=== PATIENT | male | born 1965 | race Hispanic/Latino ===

== ENCOUNTER 2017-08-09 08:46 | Emergency (ER) | payer MEDICAID, OTHER ==
[2017-08-09 08:47] VITALS: BMI 21.4
[2017-08-09 09:07] VITALS: O2SAT 98
--- NOTE | 2017-08-09 09:46 | ED PDOC ---
HPI: General Adult Time Seen by Provider: 08/09/17 09:03 Chief Complaint (Nursing): Med Refill Chief Complaint (Provider): Med Refill and Weight loss History Per: Patient History/Exam Limitations: no limitations Onset/Duration Of Symptoms: Other (approximately 2-3 months, patient is not specific) Current Symptoms Are (Timing): Still Present Additional Complaint(s): 52 yo male with a history of HIV, presents to the ED complaining of weight loss , loss of appetite, and requests a refill prescription for Atripla, onset of approximately 30-60 days ago. Patient states that he has lost 30lb-40lbs from his normal weight around 150lbs, but says the last time he scaled himself was at his primary care physician's office and has never scaled himself. He reports that his taste for certain foods have changed, causing him to have a decreased appetite. Of note, patient cannot remember his CD4 count. He denies any vomiting , fevers, headaches, sweats, chest pain, or any other complaints. In addition, he says that he ran out of Atripla and can never reach his primary care physician, so he is requesting another one. Past Medical History Reviewed: Historical Data, Nursing Documentation, Vital Signs Vital Signs: Last Vital Signs Temp 98.3 F 08/09/17 09:02 Pulse 74 08/09/17 09:02 Resp 20 08/09/17 09:02 BP 109/72 08/09/17 09:02 Pulse Ox 98 08/09/17 09:55 - Medical History PMH: HIV, Pneumonia - Surgical History Surgical History: No Surg Hx - Family History Family History: States: Unknown Family Hx - Social History Current smoker - smoking cessation education provided: No Ex-Smoker (has not smoked in the last 12 months): No Alcohol: None Drugs: Denies - Home Medications Home Medications: Ambulatory Orders Medication Instructions Recorded methylPREDNISolone [Medrol] 4 mg PO DAILY #0 tab 03/16/16 Hydrocortisone 2.5% (Rectal) 30 applic [place] BID #1 tube 06/07/16 [Anusol-HC] Sulfamethoxazole/Trimethoprim 1 each PO BID #20 tablet 06/07/16 [Bactrim 400-80 mg Tablet] Clindamycin [Cleocin] 300 mg PO QID #39 cap 11/02/17 traMADol [Ultram] 50 mg PO Q8 PRN #12 tab 04/09/17 Azithromycin 1,200 mg PO QWK #4 dose 08/09/17 Efavirenz/Emtricitabine/Teno 1 tab PO DAILY #30 tab 08/09/17 [Atripla 600 MG-200 MG-300 MG] Sulfamethoxazole/Trimethoprim 2 tab PO TID 21 Days tab 08/09/17 [Bactrim DS 800 mg-160 mg] - Allergies Allergies/Adverse Reactions: Allergies Allergy/AdvReac Type Severity Reaction Status Date / Time No Known Allergies Allergy Verified 04/09/17 02:06 Review of Systems ROS Statement: Except As Marked, All Systems Reviewed And Found Negative Constitutional: Positive for: Weight loss. Negative for: Fever, Sweats Cardiovascular: Negative for: Chest Pain Gastrointestinal: Negative for: Nausea, Vomiting, Abdominal Pain Neurological: Negative for: Headache Physical Exam - Reviewed Nursing Documentation Reviewed: Yes Vital Signs Reviewed: Yes - Physical Exam Appears: Positive for: Well, Non-toxic, No Acute Distress Head Exam: Positive for: ATRAUMATIC, NORMAL INSPECTION, NORMOCEPHALIC Skin: Positive for: Normal Color, Warm, DRY Eye Exam: Positive for: EOMI, Normal appearance, PERRL ENT: Positive for: Normal ENT Inspection Neck: Positive for: Normal, Painless ROM Cardiovascular/Chest: Positive for: Regular Rate, Rhythm. Negative for: Murmur Respiratory: Positive for: Normal Breath Sounds. Negative for: Respiratory Distress Gastrointestinal/Abdominal: Positive for: Normal Exam, Soft. Negative for: Tenderness Back: Positive for: Normal Inspection Extremity: Positive for: Normal ROM. Negative for: Pedal Edema, Deformity Neurologic/Psych: Positive for: Alert, Oriented. Negative for: Motor/Sensory Deficits - Laboratory Results Result Diagrams: 08/09/17 09:40 08/09/17 09:40 - ECG O2 Sat by Pulse Oximetry: 98 (RA) Pulse Ox Interpretation: Normal Medical Decision Making Medical Decision Making: Time: --09:27 Impression: --prescription refill request and possible weight loss with decrease appetite Differential: --aids wasting syndrome, infection general with unknown source at this time Plan: --Labs --ED Urine Dip Reassess CXR possible early developing PCP? Case discussed with Dr Gonsales FP resident for follow up appointment with the clinic. Patient will be started on Bactrim and azitro. Scribe Attestation: Documented by Topher Tijerina acting as a scribe for Harmeet Mcnamara MD. Disposition - Clinical Impression Clinical Impression: AIDS, HIV disease, PCP (pneumocystis carinii pneumonia) - Patient ED Disposition Is Patient to be Admitted: No Doctor Will See Patient In The: Office Counseled Patient/Family Regarding: Studies Performed, Diagnosis, Need For Followup - Disposition Referrals: [facility] [Outside] Disposition: Routine/Home Disposition Time: 12:38 Condition: GOOD Additional Instructions: Take your medications as instructed. Follow up with your PCP in 2-3 days. You will be called for appointment in 2 days. Prescriptions: Azithromycin 1,200 mg PO QWK #4 dose Efavirenz/Emtricitabine/Teno [Atripla 600 MG-200 MG-300 MG] 1 tab PO DAILY #30 tab Sulfamethoxazole/Trimethoprim [Bactrim DS 800 mg-160 mg] 2 tab PO TID 21 Days tab Instructions: Pneumocystis Pneumonia (PCP), HIV/AIDS Forms: [facility] ([place])
[2017-08-09 09:58] LABS: BASO % 0.5 % (0.0-2.0); EOS % 0.1 % (0.0-4.0); HEMOGLOBIN 7.6 g/dL (12.0-18.0); LYMPH # 0.1 K/uL (1.0-4.3); MEAN CELL VOLUME 86.7 fl (80.0-94.0); MEAN CORPUSCULAR HEMOGLOBIN 29.1 pg (27.0-31.0); MEAN CORPUSCULAR HGB CONC 33.5 g/dL (33.0-37.0); MEAN PLATELET VOLUME 8.3 fl (7.2-11.7); MONO # 0.1 K/uL (0.0-0.8); MONO % 5.1 % (0.0-10.0); NEUT # 1.1 K/uL (1.8-7.0); NEUT % 89.3 % (50.0-75.0); NRBC % 0.2 % (0.0-0.0); PLATELET COUNT 176 K/uL (130-400); RBC 2.63 Mil/uL (4.40-5.90); RED CELL DISTRIBUTION WIDTH 15.9 % (11.5-14.5)
[2017-08-09 10:02] LABS: ALB/GLOB RATIO 0.8 (1.0-2.1); ALBUMIN 2.9 g/dL (3.5-5.0); ALT/SGPT 35 U/L (21-72); AST/SGOT 43 U/L (17-59); BLOOD UREA NITROGEN 19 mg/dl (9-20); CALCIUM 8.2 mg/dL (8.4-10.2); GFR AFRICAN-AMERICAN > 60; GFR NON-AFRICAN AMERICAN > 60
[2017-08-09 10:07] LABS: WHITE BLOOD COUNT 1.2 K/uL (4.8-10.8)
[2017-08-09 10:44] LABS: ANISOCYTOSIS SLIGHT; LYMPHOCYTE 3 % (20-50); MONOCYTE 4 % (0-10); NEUTROPHIL 93 % (42-75); PLATELET ESTIMATE NORMAL (NORMAL); TOTAL CELLS COUNTED 100
[2017-08-09 10:46] LABS: HYPOCHROMIC SLIGHT; LARGE PLATELETS PRESENT; OVALOCYTES SLIGHT; SCHISTOCYTES SLIGHT; TEARDROP CELLS SLIGHT
[2017-08-09] MEDS ORDERED: Sodium Chloride 0.9% 1,000 ML IV STA (10:51)
--- NOTE | 2017-08-09 12:01 | RAD ---
HISTORY: Weakness. COMPARISON: Two TECHNIQUE: Chest PA and lateral FINDINGS: LUNGS: The interstitial markings are increased and coarsened particularly in the mid to lower lung zones. Rule out sequela of reactive/ inflammatory airway disease or interstitial pneumonia or viral illness. PLEURA: No significant pleural effusion identified. No pneumothorax apparent. CARDIOVASCULAR: Normal. OSSEOUS STRUCTURES: Minor multilevel degenerative spondylosis of the thoracic spine. Chronic anterior wedge deformities of a few mid -lower thoracic segments VISUALIZED UPPER ABDOMEN: Normal. OTHER FINDINGS: None. IMPRESSION: Increased and coarsened interstitial markings particularly in the mid to lower lung zones. Rule out sequela of reactive/ inflammatory airway disease or interstitial pneumonia or viral illness
[2017-08-09 12:53] VITALS: BP 106/58; PULSE 91; RESP 16; TEMP 98.8
== END 2017-08-09 12:48 | disposition home or self-care (01) ==
LOC: H.ER 08:46
DX: Z76.0 Encounter for issue of repeat prescription (principal); B59 Pneumocystosis; B20 Human immunodeficiency virus [HIV] disease; R63.4 Abnormal weight loss
CPT/HCPCS: 71046; 80053; 85025; 86360; 96360; 99283; J7040

== ENCOUNTER 2017-08-17 14:59 | Inpatient (IN) | payer OTHER ==
[2017-08-17 14:59] VITALS: BMI 21.4
--- NOTE | 2017-08-17 15:47 | ED PDOC ---
HPI: General Adult Time Seen by Provider: 08/17/17 15:24 Chief Complaint (Nursing): Weakness/Neurological Deficit Chief Complaint (Provider): generalized weakness History Per: Patient History/Exam Limitations: no limitations Current Symptoms Are (Timing): Still Present Severity: Moderate Additional Complaint(s): 52yo male hx HIV noncompliant w meds for >1 month represents to ED with generalized weakness, SOB, weight loss, cough. Seen in ED last week, found to be anemic and leukopenic, but unable to fill Rx and did not receive followup care. Past Medical History Reviewed: Historical Data, Nursing Documentation, Vital Signs Vital Signs: Last Vital Signs Temp 97.5 F L 08/17/17 15:01 Pulse 88 08/17/17 18:04 Resp 20 08/17/17 18:04 BP 129/61 08/17/17 18:04 Pulse Ox 98 08/17/17 18:04 - Medical History PMH: HIV, Pneumonia - Family History Family History: States: Unknown Family Hx - Living Arrangements Living Arrangements: Other - Home Medications Home Medications: Ambulatory Orders Medication Instructions Recorded methylPREDNISolone [Medrol] 4 mg PO DAILY #0 tab 03/16/16 Hydrocortisone 2.5% (Rectal) 30 applic [place] BID #1 tube 06/07/16 [Anusol-HC] Sulfamethoxazole/Trimethoprim 1 each PO BID #20 tablet 06/07/16 [Bactrim 400-80 mg Tablet] Clindamycin [Cleocin] 300 mg PO QID #39 cap 04/09/17 traMADol [Ultram] 50 mg PO Q8 PRN #12 tab 04/09/17 Azithromycin 1,200 mg PO QWK #4 dose 08/09/17 Efavirenz/Emtricitabine/Teno 1 tab PO DAILY #30 tab 08/09/17 [Atripla 600 MG-200 MG-300 MG] Sulfamethoxazole/Trimethoprim 2 tab PO TID 21 Days tab 08/09/17 [Bactrim DS 800 mg-160 mg] - Allergies Allergies/Adverse Reactions: Allergies Allergy/AdvReac Type Severity Reaction Status Date / Time No Known Allergies Allergy Verified 04/09/17 02:06 Review of Systems Constitutional: Positive for: Weakness, Malaise, Weight loss. Negative for: Fever Cardiovascular: Positive for: Palpitations Respiratory: Positive for: Cough, Shortness of Breath Gastrointestinal: Positive for: Diarrhea. Negative for: Abdominal Pain Musculoskeletal: Negative for: Neck Pain, Back Pain Skin: Negative for: Rash, Lesions, Bruising Neurological: Positive for: Dizziness. Negative for: Weakness, Altered Mental Status Physical Exam - Reviewed Nursing Documentation Reviewed: Yes Vital Signs Reviewed: Yes - Physical Exam Appears: Positive for: Non-toxic (temporal wasting) Head Exam: Positive for: ATRAUMATIC, NORMAL INSPECTION, NORMOCEPHALIC Skin: Positive for: Normal Color, Warm, DRY Eye Exam: Positive for: EOMI, Normal appearance, PERRL ENT: Positive for: Other (thrush) Neck: Positive for: Normal, Painless ROM Cardiovascular/Chest: Positive for: Chest Non Tender, Tachycardia Respiratory: Negative for: Wheezing, Respiratory Distress Gastrointestinal/Abdominal: Positive for: Bowel Sounds, Soft. Negative for: Tenderness Back: Positive for: Normal Inspection Extremity: Positive for: Normal ROM, Other (frail). Negative for: Tenderness Neurologic/Psych: Positive for: Alert, Oriented. Negative for: Motor/Sensory Deficits - Laboratory Results Result Diagrams: 08/17/17 16:00 08/17/17 16:00 - ECG O2 Sat by Pulse Oximetry: 98 Medical Decision Making Medical Decision Making: workup for HIV wasting/AIDs, r/o PCP or other opportunistic infection BP improved w IVF ANC approx 1200 chem reveals elev BUN, diminished CO2 will admit, place isol given immunocompromised IVF continuing Admit to FP service as now a patient of [facility] Disposition - Clinical Impression Clinical Impression: AIDS, Anemia - Patient ED Disposition Is Patient to be Admitted: Yes - Disposition Disposition Time: 17:15 Condition: FAIR Forms: [facility] ([place]) - Pt Status Changed To: Hospital Disposition Of: Observation
--- NOTE | 2017-08-17 16:10 | RAD ---
HISTORY: SOB COMPARISON: Comparison made with chest radiograph 08/09/2017 FINDINGS: LUNGS: No acute consolidation. The interstitial markings slightly less coarsened compared the prior exam. The peribronchial cuffing changes appear less pronounced as well. PLEURA: No significant pleural effusion identified, no pneumothorax apparent. CARDIOVASCULAR: Normal. OSSEOUS STRUCTURES: Minor multilevel degenerative spondylosis of the thoracic spine VISUALIZED UPPER ABDOMEN: Normal. OTHER FINDINGS: None. IMPRESSION: No acute consolidation. Interstitial markings slightly less coarsened compared the prior study. Peribronchial cuffing changes appear less pronounced as well
[2017-08-17 16:16] LABS: BASO % 1.1 % (0.0-2.0); EOS % 0.7 % (0.0-4.0); HEMOGLOBIN 9.4 g/dL (12.0-18.0); LYMPH # 0.1 K/uL (1.0-4.3); LYMPH % 7.1 % (20.0-40.0); MEAN CELL VOLUME 87.7 fl (80.0-94.0); MEAN CORPUSCULAR HEMOGLOBIN 28.5 pg (27.0-31.0); MEAN CORPUSCULAR HGB CONC 32.4 g/dL (33.0-37.0); MEAN PLATELET VOLUME 9.8 fl (7.2-11.7); MONO # 0.2 K/uL (0.0-0.8); MONO % 11.6 % (0.0-10.0); NEUT # 1.2 K/uL (1.8-7.0); NEUT % 79.5 % (50.0-75.0); NRBC % 0.8 % (0.0-0.0); PLATELET COUNT 113 K/uL (130-400); RBC 3.29 Mil/uL (4.40-5.90); RED CELL DISTRIBUTION WIDTH 16.9 % (11.5-14.5)
[2017-08-17 16:21] LABS: INR 1.3 (0.9-1.2); PARTIAL THROMBOPLASTIN TIME 29.7 Seconds (25.6-37.1); PROTHROMBIN TIME 14.5 Seconds (9.8-13.1)
[2017-08-17 16:24] LABS: ALB/GLOB RATIO 0.8 (1.0-2.1); ALBUMIN 3.1 g/dL (3.5-5.0); ALT/SGPT 31 U/L (21-72); AST/SGOT 66 U/L (17-59); BLOOD UREA NITROGEN 28 mg/dl (9-20); CALCIUM 8.8 mg/dL (8.4-10.2); GFR AFRICAN-AMERICAN > 60; GFR NON-AFRICAN AMERICAN > 60
[2017-08-17 16:40] LABS: WHITE BLOOD COUNT 1.6 K/uL (4.8-10.8)
[2017-08-17] MEDS ORDERED: Sodium Chloride 0.9% 1,000 ML IV STA (16:40)
[2017-08-17 17:09] LABS: LYMPHOCYTE 9 % (20-50); MONOCYTE 3 % (0-10); MYELOCYTE 2 % (0-0); NEUTROPHIL 86 % (42-75); TOTAL CELLS COUNTED 100
[2017-08-17 17:10] LABS: ANISOCYTOSIS SLIGHT; PLATELET ESTIMATE DECREASED (NORMAL)
[2017-08-17 17:11] LABS: OVALOCYTES SLIGHT
[2017-08-17] MEDS ORDERED: Sodium Chloride 0.9% 1,000 ML IV SCH (19:30)
[2017-08-17] MEDS ORDERED: Albuterol-Ipratrop 3 mg / 0.5 (3 ml) UD INH PRN (19:48)
[2017-08-17] MEDS ORDERED: Sodium Chloride 3% for Inhalation 4 ML VIAL.NEB IH PRN (20:01)
--- NOTE | 2017-08-17 20:06 | CP.PCM.HP ---
History of Present Illness - History of Present Illness History of Present Illness: "My PCP is acting up and i feel weak" 52 y/o male with PMHx remarkable for HIV (noncomplaint HAART) presents complaining of worsening cough, SOB, and generalized weakness and unintentional weight loss. Pt reports symptoms started over a month ago when he stopped taking his Atripla. He reports cough is nonproductive. SOB is worse with exertion but he also reports feeling weak overall. He also reports unintentional weight loss, uncertain amount but says he can see he is "wasting away". Was seen in [place] ED >1 week ago, was given refills for HAART but failed to fill prescription. Denies fever/chills, night sweats, pruritus, headaches, changes in vision, CP/Palpitations, N/V/D/C, urinary symptoms, numbness/tingling. PMD: Jada ([facility]), last visit >2 months ago PMHx: HIV (HAART noncompliant) Meds: Atriptla, last usage >1 month ago ALL: NKDA PsurgHx: none SocialHx: denies ETOH/Tobacco/Drug abuse, lives in [place] FamilyHx: denies family hx of CAD, HTN, DM, [place], [place], stroke Next of Kin: none Code Status: Full code ED Course: Vitals on presentation: T: 97.5 F, HR 119, BP 83/58, RR 16, POX 98% RA Labs CBC: pancytopenia ANC: 1200 CMP: elevated BUN, elevated AST, decreased CO2 COAG: elevated INR Imaging CXR: no acute consolidation, interstitial markings slightly less coarsened compared to prior study. Peribronchial cuffing changes appear less pronounced. Meds 1L NS Present on Admission - Present on Admission Any Indicators Present on Admission: No Review of Systems - Constitutional Constitutional: Anorexia, Fatigue, Weight Loss, Weakness. absent: As Per HPI, Chills, Daytime Sleepiness, Excessive Sweating, Fever, Frequent Falls, Headache , Increased Appetite, Lethargy, Malaise, Night Sweats, Snoring, Sleep Apnea, Weight Gain, Other - EENT Eyes: absent: As Per HPI, Blind Spots, Blurred Vision, Change in Vision, Decreased Night Vision, Diplopia, Discharge, Dry Eye, Exophthalmos, Floaters, Irritation, Itchy Eyes, Loss of Peripheral Vision, Pain, Photophobia, Requires Corrective Lenses, Sees Flashes, Spots in Vision, Tunnel Vision, Other Visual Disturbances, Loss of Vision, Other Ears: absent: As Per HPI, Decreased Hearing, Ear Discharge, Ear Pain, Tinnitus, Abnormal Hearing, Disequilibrium, Dizziness, Other Nose/Mouth/Throat: absent: As Per HPI, Epistaxis, Nasal Congestion, Nasal Discharge, Nasal Obstruction, Nasal Trauma, Nose Pain, Post Nasal Drip, Sinus Pain, Sinus Pressure, Bleeding Gums, Change in Voice, Dental Pain, Dry Mouth, Dysphagia, Halitosis, Hoarsness, Lip Swelling, Mouth Lesions, Mouth Pain, Odynophagia, Sore Throat, Throat Swelling, Tongue Swelling, Facial Pain, Neck Pain, Neck Mass, Other - Cardiovascular Cardiovascular: absent: As Per HPI, Acrocyanosis, Chest Pain, Chest Pain at Rest , Chest Pain with Activity, Claudication, Diaphoresis, Dyspnea, Dyspnea on Exertion, Edema, Irregular Heart Rhythm, Pain Radiating to Arm/Neck/Jaw, Leg Edema, Leg Ulcers, Lightheadedness, Orthopnea, Palpitations, Paroxysmal Nocturnal Dyspnea, Pedal Edema, Radiating Pain, Rapid Heart Rate, Slow Heart Rate, Syncope, Other - Respiratory Respiratory: Cough, Dyspnea, Dyspnea on Exertion, Chest Congestion, Pain with Coughing. absent: As Per HPI, Hemoptysis, Wheezing, Snoring, Stridor, Pain on Inspiration, Excessive Mucous Production, Change in Mucous Color, Other - Gastrointestinal Gastrointestinal: absent: As Per HPI, Abdominal Pain, Belching, Bloating, Change in Bowel Habits, Change in Stool Character, Coffee Ground Emesis, Constipation, Cramping, Diarrhea, Dyspepsia, Dysphagia, Early Satiety, Excessive Flatus, Fecal Incontinence, Heartburn, Hematemesis, Hematochezia, Loose Stools, Melena, Nausea, Odynophagia, Temesmus, Vomiting, Other - Musculoskeletal Musculoskeletal: absent: As Per HPI, Abnormal Gait, Arthralgias, Atrophy, Back Pain, Deformity, Joint Swelling, Limited Range of Motion, Loss of Height, Muscle Cramps, Muscle Weakness, Myalgias, Neck Pain, Numbness, Radiating Pain into Limb, Stiffness, Tingling, Other - Integumentary Integumentary: absent: As Per HPI, Acne, Alopecia, Bleeding Lesions, Change in Hair, Change in Nails, Change in Pigmentation, Changing Lesions, Dry Skin, Erythema, Furuncle, Hirsutism, Lesions, New Lesions, Non-Healing Lesions, Photosensitivity, Pruritus, Rash, Skin Pain, Skin Ulcer, Sores, Striae, Swelling , Unusual Bruising, Wounds, Jaundice, Other - Neurological Neurological: absent: As Per HPI, Abnormal Gait, Abnormal Hearing, Abnormal Movements, Abnormal Speech, Behavioral Changes, Burning Sensations, Confusion, Convulsions, Disequilibrium, Dizziness, Numbness, Focal Weakness, Frequent Falls , Headaches, Lack of Coordination, Loss of Vision, Memory Loss, Paresthesias, Radicular Pain, Restless Legs, Sensory Deficit, Syncope, Tingling, Tremor, Vertigo, Weakness, Other Visual Disturbances, Other - Psychiatric Psychiatric: absent: As Per HPI, Abnormal Sleep Pattern, Anhedonia, Anxiety, Auditory Hallucinations, Behavioral Changes, Change in Appetite, Change in Libido, Confusion, Depression, Difficulty Concentrating, Hallucinations, Homicidal Ideation, Hopelessness, Irritability, Memory Loss, Mood Swings, Panic Attacks, Paranoia, Suicidal Ideation, Visual Hallucinations, Tactile Hallucinations, Other Past Patient History - Past Social History Smoking Status: Never Smoked Alcohol: None Drugs: Denies Home Situation {Lives}: Friends - CARDIAC Hx Cardiac Disorders: No - PULMONARY Hx Pneumonia: Yes - NEUROLOGICAL Hx Neurological Disorder: No - ENDOCRINE/METABOLIC Hx Endocrine Disorders: No - HEMATOLOGICAL/ONCOLOGICAL Hx Human Immunodeficiency Virus (HIV): Yes - INTEGUMENTARY Hx Dermatological Problems: No - MUSCULOSKELETAL/RHEUMATOLOGICAL Hx Musculoskeletal Disorders: No - GASTROINTESTINAL Hx Gastrointestinal Disorders: Yes Hx Hemorrhoids: Yes - GENITOURINARY/GYNECOLOGICAL Hx Genitourinary Disorders: No - PSYCHIATRIC Hx Psychophysiologic Disorder: No - SURGICAL HISTORY Hx Surgeries: No - ANESTHESIA Hx Anesthesia: No Hx Anesthesia Reactions: No Hx Malignant Hyperthermia: No Meds Allergies/Adverse Reactions: Allergies Allergy/AdvReac Type Severity Reaction Status Date / Time No Known Allergies Allergy Verified 04/09/17 02:06 Physical Exam - Constitutional Appears: Non-toxic, No Acute Distress, Cachectic - Head Exam Head Exam: ATRAUMATIC, NORMAL INSPECTION, NORMOCEPHALIC - Eye Exam Eye Exam: EOMI, Normal appearance, PERRL. absent: Conjunctival injection, Periorbital swelling, Scleral icterus Pupil Exam: NORMAL ACCOMODATION - ENT Exam ENT Exam: Mucous Membranes Dry. absent: Normal Exam - Neck Exam Neck exam: Positive for: Full Rom, Normal Inspection. Negative for: Lymphadenopathy, Tenderness, Thyromegaly - Respiratory Exam Respiratory Exam: Decreased Breath Sounds (upper lobes b/l), NORMAL BREATHING PATTERN. absent: Accessory Muscle Use, Clear to Auscultation Bilateral, Prolonged Expiratory Phase, Rales, Rhonchi, Wheezes, Respiratory Distress, Stridor - Cardiovascular Exam Cardiovascular Exam: REGULAR RHYTHM, RRR, +S1, +S2. absent: Tachycardia, Diastolic murmur, Gallop, Irregular Rhythm, JVD, Rubs, Systolic Murmur - GI/Abdominal Exam GI & Abdominal Exam: Normal Bowel Sounds, Soft. absent: Distended, Guarding, Organomegaly, Rebound, Rigid, Tenderness - Extremities Exam Extremities exam: Positive for: normal capillary refill, normal inspection, pedal pulses present. Negative for: calf tenderness, pedal edema, tenderness - Back Exam Back exam: NORMAL INSPECTION. absent: CVA tenderness (L), CVA tenderness (R) - Neurological Exam Neurological exam: Alert, CN II-XII Intact, Normal Gait, Oriented x3, Reflexes Normal - Psychiatric Exam Psychiatric exam: Normal Affect, Normal Mood - Skin Skin Exam: Dry, Intact, Normal Color, Warm Results - Vital Signs Recent Vital Signs: Last Vital Signs Temp 97.3 F L 08/17/17 19:00 Pulse 80 08/17/17 19:00 Resp 20 08/17/17 19:00 BP 108/73 08/17/17 19:00 Pulse Ox 99 08/17/17 19:00 - Labs Result Diagrams: 08/17/17 16:00 08/17/17 16:00 Labs: Laboratory Results - last 24 hr 08/17/17 08/17/17 08/17/17 16:00 16:00 16:00 WBC 1.6 L* RBC 3.29 L Hgb 9.4 L Hct 28.8 L MCV 87.7 MCH 28.5 MCHC 32.4 L RDW 16.9 H Plt Count 113 L D MPV 9.8 Neut % (Auto) 79.5 H Lymph % (Auto) 7.1 L [place] % (Auto) 11.6 H Eos % (Auto) 0.7 Baso % (Auto) 1.1 Neut # (Auto) 1.2 L Lymph # (Auto) 0.1 L [place] # (Auto) 0.2 Eos # (Auto) 0.0 Baso # (Auto) 0.0 Neutrophils % (Manual) 86 H Lymphocytes % (Manual) 9 L Monocytes % (Manual) 3 Myelocytes % 2 H Platelet Estimate Decreased L Anisocytosis (manual) Slight Ovalocytes Slight PT 14.5 H INR 1.3 H APTT 29.7 Sodium 134 Potassium 4.4 Chloride 95 L Carbon Dioxide 20 L Anion Gap 23 H BUN 28 H Creatinine 0.7 L Est GFR ( Amer) > 60 Est GFR (Non-Af Amer) > 60 Random Glucose 93 Calcium 8.8 Total Bilirubin 0.5 AST 66 H D ALT 31 Alkaline Phosphatase 171 H Total Protein 7.0 Albumin 3.1 L Globulin 3.9 Albumin/Globulin Ratio 0.8 L Blood Type Blood Type Confirm Antibody Screen BBK History Checked 08/17/17 08/17/17 16:00 16:16 WBC RBC Hgb Hct MCV MCH MCHC RDW Plt Count MPV Neut % (Auto) Lymph % (Auto) [place] % (Auto) Eos % (Auto) Baso % (Auto) Neut # (Auto) Lymph # (Auto) [place] # (Auto) Eos # (Auto) Baso # (Auto) Neutrophils % (Manual) Lymphocytes % (Manual) Monocytes % (Manual) Myelocytes % Platelet Estimate Anisocytosis (manual) Ovalocytes PT INR APTT Sodium Potassium Chloride Carbon Dioxide Anion Gap BUN Creatinine Est GFR ( Amer) Est GFR (Non-Af Amer) Random Glucose Calcium Total Bilirubin AST ALT Alkaline Phosphatase Total Protein Albumin Globulin Albumin/Globulin Ratio Blood Type O POSITIVE Blood Type Confirm O POSITIVE Antibody Screen Negative BBK History Checked No verified bt Assessment & Plan - Assessment and Plan (Free Text) Assessment: 52 y/o male with AIDS (as per 03/2016 CD4) admitted for pancytopenia, generalized weakness/deconditioning, and suspected PCP pneumonia. Plan: 1) Suspected PCP Pneumonia -vitals stablized post 1L fluid hydration -start PCP Treatment regimen -2L NS given -Fluid hydration with NS 100mls/hr mx -Bactrim 16mg/kg divided Q8H -Prednisone 40mg BID -Lactic acid, procalcitionin pending -repeat CXR in AM -Duo-nebs PRN -monitor vitals/POX -Tylenol 650mg PRN Fever -consider ID consult -hx of HAART therapy noncompliance, held to avoid possible IRIS, will resume if ok-ed by ID 2) AIDS -CD4 count as of Mar 2016: 5 -repeat CD4/CD8: pending -RPR, Hepatitis panel, UDS, B12, Folate, TSH, Lipid Panel, Toxoplasma: pending -blood/sputum cultures pending -Neutropenic precautions -reverse isolation -start MAC ppx with Azithromycin 1200mg QWeekly 3) Pancytopenia -likely 2/2 to AIDS -denies ischemic/anemic symptoms -repeat Labs in AM -Type and screen completed -possible transfusion pending AM results post hydration 4) Generalized weakness/deconditioning -regular diet -PT eval and treatment 5) Diet -regular diet 6) Prophylaxis -thrombocytopenia -await manual count, and repeat AM CBC to confirm -SCDS/ambulation 7) Code Status -full code
[2017-08-17] MEDS ORDERED: SULFAMETHOXAZOLE IVPB SCH (20:15)
[2017-08-17] MEDS ORDERED: DEXTROSE 5% IVPB SCH (20:15)
[2017-08-17] MEDS ORDERED: WATER IVPB SCH (20:15)
[2017-08-17] MEDS ORDERED: TRIMETHOPRIM IVPB SCH (20:15)
[2017-08-17] MEDS: Sodium Chloride 0.9% 1,000 ML IV SCH (20:55)
[2017-08-17] MEDS ORDERED: Tmp-Smz 800 mg-160 mg DS Tab PO SCH (21:00)
[2017-08-17] MEDS ORDERED: Influenza Vaccine 18yr & older 0.5 ML/45 MCG SYR IM ONE (22:05)
[2017-08-17] MEDS ORDERED: Pneumococcal 23-Valent Vaccine IM ONE (22:05)
[2017-08-17] MEDS: WATER IVPB SCH (22:07)
[2017-08-17] MEDS: TRIMETHOPRIM IVPB SCH (22:07)
[2017-08-17] MEDS: DEXTROSE 5% IVPB SCH (22:07)
[2017-08-17] MEDS: SULFAMETHOXAZOLE IVPB SCH (22:07)
[2017-08-17 23:27] LABS: BARBITURATES, UR NEGATIVE (NEGATIVE); BENZODIAZEPINES, UR NEGATIVE (NEGATIVE); OPIATES, UR NEGATIVE (NEGATIVE); PHENCYCLIDINE, UR NEGATIVE (NEGATIVE)
[2017-08-18 01:06] LABS: VENOUS BLOOD GAS BASE EXCESS -0.7 mmol/L (0.0-2.0); VENOUS BLOOD GAS PCO2 40 mmHg (40-60); VENOUS BLOOD GAS PO2 26 mm/Hg (30-55); VENOUS BLOOD PH 7.39 (7.32-7.43)
[2017-08-18] MEDS: DEXTROSE 5% IVPB SCH ×3 (04:24→12:57)
[2017-08-18] MEDS: SULFAMETHOXAZOLE IVPB SCH ×3 (04:24→12:57)
[2017-08-18] MEDS: TRIMETHOPRIM IVPB SCH ×3 (04:24→12:57)
[2017-08-18] MEDS: WATER IVPB SCH ×3 (04:24→12:57)
[2017-08-18] MEDS: Sodium Chloride 0.9% 1,000 ML IV SCH (06:18)
--- NOTE | 2017-08-18 06:21 | CARD ---
APPROVED REPORT EKG Measurement Heart [id number] <Conclusion> Sinus tachycardia Otherwise normal ECG
[2017-08-18 06:47] LABS: ALB/GLOB RATIO 0.8 (1.0-2.1); ALBUMIN 2.8 g/dL (3.5-5.0); ALT/SGPT 31 U/L (21-72); AST/SGOT 50 U/L (17-59); BLOOD UREA NITROGEN 17 mg/dl (9-20); CALCIUM 8.2 mg/dL (8.4-10.2); GFR AFRICAN-AMERICAN > 60; GFR NON-AFRICAN AMERICAN > 60
--- NOTE | 2017-08-18 09:20 | CP.PCM.PN ---
Subjective - Date & Time of Evaluation Date of Evaluation: 08/18/17 Time of Evaluation: 09:00 - Subjective Subjective: Pt seen and eval at bedside this am; no acute events or complaints. States he feels better, is able to breathe better and feels stronger today. Objective - Vital Signs/Intake and Output Vital Signs (last 24 hours): Temp Pulse Resp BP Pulse Ox 97.6 F 63 18 106/70 97 08/18/17 08:10 08/18/17 08:10 08/18/17 08:10 08/18/17 08:10 08/18/17 08:10 - Medications Medications: Current Medications Acetaminophen (Tylenol 325mg Tab) 650 mg PO Q6 PRN PRN Reason: Fever >100.4 F Albuterol/Ipratropium (Duoneb 3 Mg/0.5 Mg (3 Ml) Ud) 3 ml INH RQID PRN PRN Reason: Shortness of Breath Azithromycin (Zithromax) 1,200 mg PO QWK [facility]ARY ANN PRN Reason: Protocol Sodium Chloride (Sodium Chloride 0.9%) 1,000 mls @ 999 mls/hr IV .Q1H1M [facility] Stop: 08/18/17 19:31 Sodium Chloride (Sodium Chloride 0.9%) 1,000 mls @ 100 mls/hr IV .Q10H [facility] Last Admin: 08/18/17 06:18 Dose: Not Given Trimethoprim/Sulfamethoxazole (315 mg/ Dextrose) 500 mls @ 250 mls/hr IVPB Q8@ 0500,1300,2100 MARY ANN PRN Reason: Protocol Last Admin: 08/18/17 04:24 Dose: 250 mls/hr Prednisone (Prednisone Tab) 40 mg PO BID [facility] Last Admin: 08/18/17 08:55 Dose: 40 mg - Labs Labs: 08/17/17 16:00 08/18/17 05:40 PT 14.5 Seconds (9.8-13.1) H 08/17/17 16:00 INR 1.3 (0.9-1.2) H 08/17/17 16:00 APTT 29.7 Seconds (25.6-37.1) 08/17/17 16:00 - Constitutional Appears: No Acute Distress, Younger Than Stated Age, Cachectic - Head Exam Head Exam: NORMAL INSPECTION - Eye Exam Eye Exam: EOMI, Normal appearance - ENT Exam ENT Exam: Mucous Membranes Moist - Respiratory Exam Respiratory Exam: Decreased Breath Sounds (bilaterally; but clear sounds), NORMAL BREATHING PATTERN. absent: Wheezes, Respiratory Distress - Cardiovascular Exam Cardiovascular Exam: REGULAR RHYTHM, +S1, +S2 - GI/Abdominal Exam GI & Abdominal Exam: Soft, Normal Bowel Sounds - Extremities Exam Extremities Exam: absent: Calf Tenderness, Pedal Edema - Back Exam Back Exam: NORMAL INSPECTION - Neurological Exam Neurological Exam: Alert, Awake, Oriented x3 - Skin Skin Exam: Dry, Intact, Normal Color, Warm Assessment and Plan - Assessment and Plan (Free Text) Assessment: 52 y/o male with AIDS (as per 03/2016 CD4) admitted for pancytopenia, generalized weakness/deconditioning, and suspected PCP pneumonia. Plan: #) Suspected PCP Pneumonia - PCP Treatment regimen: bactrim 16mg/kg divided Q8H - Fluid hydration with NS 100mls/hr - Prednisone 40mg BID - Lactic acid, procalcitionin pending - Tylenol 650mg PRN Fever - ID consult- Dr. Crump - hx of HAART therapy noncompliance, held for now, pending ID recs - s/p 2L NS in ED, vitals stable - repeat CXR pending - Duo-nebs PRN - monitor vitals/POX #) AIDS - CD4 % As of Mar 2016: 5, abs count 37 - repeat CD4/CD8: pending - Head CT with and without contrast - RPR, hepatitis panel, toxoplasma - UDS neg - B12 wnl, folate pending - Lipid panel- total 185, LDL 106, HDL 29, - blood/sputum cultures pending - neutropenic precautions, reverse isolation - start MAC ppx with Azithromycin 1200mg weekly #) Pancytopenia - likely secondary to AIDS - hematology consult Dr. Rey - denies ischemic/anemic symptoms #) Generalized weakness/deconditioning - regular diet - PT eval and treatment #) Diet - regular diet #) Prophylaxis - SCDS/ambulation
--- NOTE | 2017-08-18 10:20 | RAD ---
HISTORY: SOB COMPARISON: Chest radiograph dated 08/17/2017 TECHNIQUE: Chest PA and lateral FINDINGS: LUNGS: No active pulmonary disease. PLEURA: No significant pleural effusion identified. No pneumothorax apparent. CARDIOVASCULAR: Normal. OSSEOUS STRUCTURES: Unchanged. VISUALIZED UPPER ABDOMEN: Normal. OTHER FINDINGS: None. IMPRESSION: No active disease.
--- NOTE | 2017-08-18 11:39 | CP.PCM.CON ---
History of Present Illness - History of Present Illness History of Present Illness: Infectious Disease Consultation Note- asked to see this patient at the request of dr.Pierre Thakkar for HIV/AIDS / neutropenia. HPI- Patient is a 52 y/o male with PMH of HIV/AIDS noncomplainat with his HAART who is admitted with c/o weakness and weight loss and sob with exertion. Pt. explains he has had PCP before 5 years ago and he states " this is pcp pneumonia, I know it). He denies any cough, denies any fevre or chills. denies any diarrhea, denies any nausea or vomiting. He states he feels weak nad low ebnergy. He states he was on atripla and was doing well on it but he can't afford it he states. He denies any recent travel. PMD: Jada ([facility]), last visit >2 months ago PMHx: HIV (HAART noncompliant) Meds: Atriptla, last usage >1 month ago ALL: NKDA PsurgHx: none SocialHx: denies ETOH/Tobacco/Drug abuse, lives in [place] Next of Kin: none Code Status: Full code Review of Systems - Review of Systems Review of Systems: ROS- + weakness and low energy, + weight loss, denies any fever or chills, denies any LYNCH, denies any cough, + sob with exertion, denies any chest pain, denies any abd. pain, denies any dysurea, denies any n/v, denies any diarrhea Past Patient History - Past Medical History & Family History Past Medical History?: Yes - Past Social History Smoking Status: Never Smoked Alcohol: None Drugs: Denies Home Situation {Lives}: Friends - CARDIAC Hx Cardiac Disorders: No - PULMONARY Hx Pneumonia: Yes - NEUROLOGICAL Hx Neurological Disorder: No - ENDOCRINE/METABOLIC Hx Endocrine Disorders: No - HEMATOLOGICAL/ONCOLOGICAL Hx AIDS: Yes Hx Human Immunodeficiency Virus (HIV): Yes - INTEGUMENTARY Hx Dermatological Problems: No - MUSCULOSKELETAL/RHEUMATOLOGICAL Hx Musculoskeletal Disorders: No - GASTROINTESTINAL Hx Gastrointestinal Disorders: Yes Hx Hemorrhoids: Yes - GENITOURINARY/GYNECOLOGICAL Hx Genitourinary Disorders: No - PSYCHIATRIC Hx Psychophysiologic Disorder: No - SURGICAL HISTORY Hx Surgeries: No - ANESTHESIA Hx Anesthesia: No Hx Anesthesia Reactions: No Hx Malignant Hyperthermia: No Meds Allergies/Adverse Reactions: Allergies Allergy/AdvReac Type Severity Reaction Status Date / Time No Known Allergies Allergy Verified 04/09/17 02:06 - Medications Medications: Current Medications Acetaminophen (Tylenol 325mg Tab) 650 mg PO Q6 PRN PRN Reason: Fever >100.4 F Albuterol/Ipratropium (Duoneb 3 Mg/0.5 Mg (3 Ml) Ud) 3 ml INH RQID PRN PRN Reason: Shortness of Breath Azithromycin (Zithromax) 1,200 mg PO QWK [facility] PRN Reason: Protocol Sodium Chloride (Sodium Chloride 0.9%) 1,000 mls @ 999 mls/hr IV .Q1H1M [facility] Stop: 08/18/17 19:31 Sodium Chloride (Sodium Chloride 0.9%) 1,000 mls @ 100 mls/hr IV .Q10H [facility] Last Admin: 08/18/17 06:18 Dose: Not Given Trimethoprim/Sulfamethoxazole (315 mg/ Dextrose) 500 mls @ 250 mls/hr IVPB Q8@ 0500,1300,2100 [facility] PRN Reason: Protocol Last Admin: 08/18/17 04:24 Dose: 250 mls/hr Prednisone (Prednisone Tab) 40 mg PO BID [facility] Last Admin: 08/18/17 08:55 Dose: 40 mg Physical Exam - Constitutional Appears: No Acute Distress, Cachectic, Chronically Ill - Head Exam Head Exam: ATRAUMATIC - Eye Exam Eye Exam: EOMI, PERRL - Neck Exam Neck exam: Positive for: Full Rom Additional comments: supple - Respiratory Exam Respiratory Exam: NORMAL BREATHING PATTERN Additional comments: good breath sounds b/l no wheezing - Cardiovascular Exam Cardiovascular Exam: RRR, +S1, +S2 - GI/Abdominal Exam GI & Abdominal Exam: Normal Bowel Sounds, Soft Additional comments: NT, ND - Extremities Exam Extremities exam: Positive for: normal inspection - Neurological Exam Neurological exam: Alert, Oriented x3 Results - Vital Signs Recent Vital Signs: Last Vital Signs Temp 97.6 F 08/18/17 08:10 Pulse 63 08/18/17 08:10 Resp 18 08/18/17 08:10 BP 106/70 08/18/17 08:10 Pulse Ox 97 08/18/17 08:10 - Labs Result Diagrams: 08/19/17 05:30 08/19/17 05:30 Labs: Laboratory Results - last 24 hr 08/17/17 08/17/17 08/17/17 00:57 16:00 16:00 WBC 1.6 L* RBC 3.29 L Hgb 9.4 L Hct 28.8 L MCV 87.7 MCH 28.5 MCHC 32.4 L RDW 16.9 H Plt Count 113 L D MPV 9.8 Neut % (Auto) 79.5 H Lymph % (Auto) 7.1 L [place] % (Auto) 11.6 H Eos % (Auto) 0.7 Baso % (Auto) 1.1 Neut # (Auto) 1.2 L Lymph # (Auto) 0.1 L [place] # (Auto) 0.2 Eos # (Auto) 0.0 Baso # (Auto) 0.0 Neutrophils % (Manual) 86 H Lymphocytes % (Manual) 9 L Monocytes % (Manual) 3 Myelocytes % 2 H Platelet Estimate Decreased L Anisocytosis (manual) Slight Ovalocytes Slight PT INR APTT pO2 26 L VBG pH 7.39 VBG pCO2 40 VBG HCO3 23.0 VBG Total CO2 25.4 VBG O2 Sat (Calc) 48.5 VBG Base Excess -0.7 L VBG Potassium 4.2 Sodium 129.0 L 134 Chloride 102.0 95 L Glucose 132 H Lactate 1.4 FiO2 21.0 Potassium 4.4 Carbon Dioxide 20 L Anion Gap 23 H BUN 28 H Creatinine 0.7 L Est GFR ( Amer) > 60 Est GFR (Non-Af Amer) > 60 Random Glucose 93 Lactic Acid Calcium 8.8 Total Bilirubin 0.5 AST 66 H D ALT 31 Alkaline Phosphatase 171 H Total Protein 7.0 Albumin 3.1 L Globulin 3.9 Albumin/Globulin Ratio 0.8 L Triglycerides Cholesterol LDL Cholesterol Direct HDL Cholesterol Vitamin B12 TSH 3rd Generation Venous Blood Potassium 4.2 Urine Opiates Screen Urine Methadone Screen Ur Barbiturates Screen Ur Phencyclidine Scrn Ur Amphetamines Screen U Benzodiazepines Scrn U Oth Cocaine Metabols U Cannabinoids Screen Blood Type Blood Type Confirm Antibody Screen BBK History Checked 08/17/17 08/17/17 08/17/17 16:00 16:00 16:16 WBC RBC Hgb Hct MCV MCH MCHC RDW Plt Count MPV Neut % (Auto) Lymph % (Auto) [place] % (Auto) Eos % (Auto) Baso % (Auto) Neut # (Auto) Lymph # (Auto) [place] # (Auto) Eos # (Auto) Baso # (Auto) Neutrophils % (Manual) Lymphocytes % (Manual) Monocytes % (Manual) Myelocytes % Platelet Estimate Anisocytosis (manual) Ovalocytes PT 14.5 H INR 1.3 H APTT 29.7 pO2 VBG pH VBG pCO2 VBG HCO3 VBG Total CO2 VBG O2 Sat (Calc) VBG Base Excess VBG Potassium Sodium Chloride Glucose Lactate FiO2 Potassium Carbon Dioxide Anion Gap BUN Creatinine Est GFR ( Amer) Est GFR (Non-Af Amer) Random Glucose Lactic Acid Calcium Total Bilirubin AST ALT Alkaline Phosphatase Total Protein Albumin Globulin Albumin/Globulin Ratio Triglycerides Cholesterol LDL Cholesterol Direct HDL Cholesterol Vitamin B12 TSH 3rd Generation Venous Blood Potassium Urine Opiates Screen Urine Methadone Screen Ur Barbiturates Screen Ur Phencyclidine Scrn Ur Amphetamines Screen U Benzodiazepines Scrn U Oth Cocaine Metabols U Cannabinoids Screen Blood Type O POSITIVE Blood Type Confirm O POSITIVE Antibody Screen Negative BBK History Checked No verified bt 08/17/17 08/17/17 08/18/17 20:11 23:04 01:30 WBC RBC Hgb Hct MCV MCH MCHC RDW Plt Count MPV Neut % (Auto) Lymph % (Auto) [place] % (Auto) Eos % (Auto) Baso % (Auto) Neut # (Auto) Lymph # (Auto) [place] # (Auto) Eos # (Auto) Baso # (Auto) Neutrophils % (Manual) Lymphocytes % (Manual) Monocytes % (Manual) Myelocytes % Platelet Estimate Anisocytosis (manual) Ovalocytes PT INR APTT pO2 VBG pH VBG pCO2 VBG HCO3 VBG Total CO2 VBG O2 Sat (Calc) VBG Base Excess VBG Potassium Sodium Chloride Glucose Lactate FiO2 Potassium Carbon Dioxide Anion Gap BUN Creatinine Est GFR ( Amer) Est GFR (Non-Af Amer) Random Glucose Lactic Acid 1.0 Calcium Total Bilirubin AST ALT Alkaline Phosphatase Total Protein Albumin Globulin Albumin/Globulin Ratio Triglycerides 260 H Cholesterol 185 LDL Cholesterol Direct 106 HDL Cholesterol 29 L Vitamin B12 826 TSH 3rd Generation 5.77 H Venous Blood Potassium Urine Opiates Screen Negative Urine Methadone Screen Negative Ur Barbiturates Screen Negative Ur Phencyclidine Scrn Negative Ur Amphetamines Screen Negative U Benzodiazepines Scrn Negative U Oth Cocaine Metabols Negative U Cannabinoids Screen Negative Blood Type Blood Type Confirm Antibody Screen BBK History Checked 08/18/17 05:40 WBC RBC Hgb Hct MCV MCH MCHC RDW Plt Count MPV Neut % (Auto) Lymph % (Auto) [place] % (Auto) Eos % (Auto) Baso % (Auto) Neut # (Auto) Lymph # (Auto) [place] # (Auto) Eos # (Auto) Baso # (Auto) Neutrophils % (Manual) Lymphocytes % (Manual) Monocytes % (Manual) Myelocytes % Platelet Estimate Anisocytosis (manual) Ovalocytes PT INR APTT pO2 VBG pH VBG pCO2 VBG HCO3 VBG Total CO2 VBG O2 Sat (Calc) VBG Base Excess VBG Potassium Sodium 132 Chloride 97 L Glucose Lactate FiO2 Potassium 4.8 Carbon Dioxide 22 Anion Gap 18 BUN 17 Creatinine 0.5 L Est GFR ( Amer) > 60 Est GFR (Non-Af Amer) > 60 Random Glucose 183 H Lactic Acid Calcium 8.2 L Total Bilirubin 0.4 AST 50 ALT 31 Alkaline Phosphatase 143 H Total Protein 6.5 Albumin 2.8 L Globulin 3.7 Albumin/Globulin Ratio 0.8 L Triglycerides Cholesterol LDL Cholesterol Direct HDL Cholesterol Vitamin B12 TSH 3rd Generation Venous Blood Potassium Urine Opiates Screen Urine Methadone Screen Ur Barbiturates Screen Ur Phencyclidine Scrn Ur Amphetamines Screen U Benzodiazepines Scrn U Oth Cocaine Metabols U Cannabinoids Screen Blood Type Blood Type Confirm Antibody Screen BBK History Checked Laboratory Results - last 72 hr 08/17/17 08/17/17 08/17/17 00:57 16:00 16:00 WBC 1.6 L* RBC 3.29 L Hgb 9.4 L Hct 28.8 L MCV 87.7 MCH 28.5 MCHC 32.4 L RDW 16.9 H Plt Count 113 L D MPV 9.8 Neut % (Auto) 79.5 H Lymph % (Auto) 7.1 L [place] % (Auto) 11.6 H Eos % (Auto) 0.7 Baso % (Auto) 1.1 Neut # (Auto) 1.2 L Lymph # (Auto) 0.1 L [place] # (Auto) 0.2 Eos # (Auto) 0.0 Baso # (Auto) 0.0 Neutrophils % (Manual) 86 H Band Neutrophils % Lymphocytes % (Manual) 9 L Monocytes % (Manual) 3 Myelocytes % 2 H Platelet Estimate Decreased L Large Platelets Giant Platelets Hypochromasia (manual) Poikilocytosis (manual Anisocytosis (manual) Slight Microcytosis (manual) Macrocytosis (manual) Spherocytes Ovalocytes Slight [place] Cells Acanthocytes (Spur) PT INR APTT pO2 26 L VBG pH 7.39 VBG pCO2 40 VBG HCO3 23.0 VBG Total CO2 25.4 VBG O2 Sat (Calc) 48.5 VBG Base Excess -0.7 L VBG Potassium 4.2 Sodium 129.0 L 134 Chloride 102.0 95 L Glucose 132 H Lactate 1.4 FiO2 21.0 Potassium 4.4 Carbon Dioxide 20 L Anion Gap 23 H BUN 28 H Creatinine 0.7 L Est GFR ( Amer) > 60 Est GFR (Non-Af Amer) > 60 Random Glucose 93 Lactic Acid Calcium 8.8 Total Bilirubin 0.5 AST 66 H D ALT 31 Alkaline Phosphatase 171 H Total Protein 7.0 Albumin 3.1 L Globulin 3.9 Albumin/Globulin Ratio 0.8 L Triglycerides Cholesterol LDL Cholesterol Direct HDL Cholesterol Vitamin B12 TSH 3rd Generation Venous Blood Potassium 4.2 Urine Opiates Screen Urine Methadone Screen Ur Barbiturates Screen Ur Phencyclidine Scrn Ur Amphetamines Screen U Benzodiazepines Scrn U Oth Cocaine Metabols U Cannabinoids Screen Blood Type Blood Type Confirm Antibody Screen BBK History Checked 08/17/17 08/17/17 08/17/17 16:00 16:00 16:16 WBC RBC Hgb Hct MCV MCH MCHC RDW Plt Count MPV Neut % (Auto) Lymph % (Auto) [place] % (Auto) Eos % (Auto) Baso % (Auto) Neut # (Auto) Lymph # (Auto) [place] # (Auto) Eos # (Auto) Baso # (Auto) Neutrophils % (Manual) Band Neutrophils % Lymphocytes % (Manual) Monocytes % (Manual) Myelocytes % Platelet Estimate Large Platelets Giant Platelets Hypochromasia (manual) Poikilocytosis (manual Anisocytosis (manual) Microcytosis (manual) Macrocytosis (manual) Spherocytes Ovalocytes [place] Cells Acanthocytes (Spur) PT 14.5 H INR 1.3 H APTT 29.7 pO2 VBG pH VBG pCO2 VBG HCO3 VBG Total CO2 VBG O2 Sat (Calc) VBG Base Excess VBG Potassium Sodium Chloride Glucose Lactate FiO2 Potassium Carbon Dioxide Anion Gap BUN Creatinine Est GFR ( Amer) Est GFR (Non-Af Amer) Random Glucose Lactic Acid Calcium Total Bilirubin AST ALT Alkaline Phosphatase Total Protein Albumin Globulin Albumin/Globulin Ratio Triglycerides Cholesterol LDL Cholesterol Direct HDL Cholesterol Vitamin B12 TSH 3rd Generation Venous Blood Potassium Urine Opiates Screen Urine Methadone Screen Ur Barbiturates Screen Ur Phencyclidine Scrn Ur Amphetamines Screen U Benzodiazepines Scrn U Oth Cocaine Metabols U Cannabinoids Screen Blood Type O POSITIVE Blood Type Confirm O POSITIVE Antibody Screen Negative BBK History Checked No verified bt 08/17/17 08/17/17 08/18/17 20:11 23:04 01:30 WBC RBC Hgb Hct MCV MCH MCHC RDW Plt Count MPV Neut % (Auto) Lymph % (Auto) [place] % (Auto) Eos % (Auto) Baso % (Auto) Neut # (Auto) Lymph # (Auto) [place] # (Auto) Eos # (Auto) Baso # (Auto) Neutrophils % (Manual) Band Neutrophils % Lymphocytes % (Manual) Monocytes % (Manual) Myelocytes % Platelet Estimate Large Platelets Giant Platelets Hypochromasia (manual) Poikilocytosis (manual Anisocytosis (manual) Microcytosis (manual) Macrocytosis (manual) Spherocytes Ovalocytes [place] Cells Acanthocytes (Spur) PT INR APTT pO2 VBG pH VBG pCO2 VBG HCO3 VBG Total CO2 VBG O2 Sat (Calc) VBG Base Excess VBG Potassium Sodium Chloride Glucose Lactate FiO2 Potassium Carbon Dioxide Anion Gap BUN Creatinine Est GFR ( Amer) Est GFR (Non-Af Amer) Random Glucose Lactic Acid 1.0 Calcium Total Bilirubin AST ALT Alkaline Phosphatase Total Protein Albumin Globulin Albumin/Globulin Ratio Triglycerides 260 H Cholesterol 185 LDL Cholesterol Direct 106 HDL Cholesterol 29 L Vitamin B12 826 TSH 3rd Generation 5.77 H Venous Blood Potassium Urine Opiates Screen Negative Urine Methadone Screen Negative Ur Barbiturates Screen Negative Ur Phencyclidine Scrn Negative Ur Amphetamines Screen Negative U Benzodiazepines Scrn Negative U Oth Cocaine Metabols Negative U Cannabinoids Screen Negative Blood Type Blood Type Confirm Antibody Screen BBK History Checked 08/18/17 08/18/17 05:40 07:26 WBC 0.6 L* D RBC 2.99 L Hgb 8.7 L Hct 25.9 L MCV 86.6 MCH 28.9 MCHC 33.4 RDW 16.5 H Plt Count 97 L MPV 9.9 Neut % (Auto) 77.1 H Lymph % (Auto) 11.0 L [place] % (Auto) 11.1 H Eos % (Auto) 0.2 Baso % (Auto) 0.6 Neut # (Auto) 0.5 L Lymph # (Auto) 0.1 L [place] # (Auto) 0.1 Eos # (Auto) 0.0 Baso # (Auto) 0.0 Neutrophils % (Manual) 70 Band Neutrophils % 2 Lymphocytes % (Manual) 18 L Monocytes % (Manual) 6 Myelocytes % 4 H Platelet Estimate Decreased L Large Platelets Present Giant Platelets Present Hypochromasia (manual) Slight Poikilocytosis (manual Slight Anisocytosis (manual) Moderate Microcytosis (manual) Slight Macrocytosis (manual) Slight Spherocytes Slight Ovalocytes Slight [place] Cells Slight Acanthocytes (Spur) Slight PT INR APTT pO2 VBG pH VBG pCO2 VBG HCO3 VBG Total CO2 VBG O2 Sat (Calc) VBG Base Excess VBG Potassium Sodium 132 Chloride 97 L Glucose Lactate FiO2 Potassium 4.8 Carbon Dioxide 22 Anion Gap 18 BUN 17 Creatinine 0.5 L Est GFR ( Amer) > 60 Est GFR (Non-Af Amer) > 60 Random Glucose 183 H Lactic Acid Calcium 8.2 L Total Bilirubin 0.4 AST 50 ALT 31 Alkaline Phosphatase 143 H Total Protein 6.5 Albumin 2.8 L Globulin 3.7 Albumin/Globulin Ratio 0.8 L Triglycerides Cholesterol LDL Cholesterol Direct HDL Cholesterol Vitamin B12 TSH 3rd Generation Venous Blood Potassium Urine Opiates Screen Urine Methadone Screen Ur Barbiturates Screen Ur Phencyclidine Scrn Ur Amphetamines Screen U Benzodiazepines Scrn U Oth Cocaine Metabols U Cannabinoids Screen Blood Type Blood Type Confirm Antibody Screen BBK History Checked Accession No. : [id number] Patient Name / ID : GISSEL LEMOS / [id number] Exam Date : 08/18/2017 09:31:59 ( Approved ) Study Comment : Sex / Age : M / [id number] Creator : Ajay Sin MD Dictator : Ajay Sin MD Hair Clipper Power : Last Putter Away : Ajay Sin MD Approver2 : Report Date : 08/18/2017 10:13:37 My Comment : HISTORY: SOB COMPARISON: Chest radiograph dated 08/17/2017 TECHNIQUE: Chest PA and lateral FINDINGS: LUNGS: No active pulmonary disease. PLEURA: No significant pleural effusion identified. No pneumothorax apparent. CARDIOVASCULAR: Normal. OSSEOUS STRUCTURES: Unchanged. VISUALIZED UPPER ABDOMEN: Normal. OTHER FINDINGS: None. IMPRESSION: No active disease. Assessment & Plan (1) Neutropenia Status: Acute (2) Anemia Status: Acute (3) HIV disease Status: Acute - Assessment and Plan (Free Text) Assessment: A/p- 52 y/o male with uncontrolled HIV ( noncomplainat with meds) admitted with weakness and weight loss and pancytopenis. the etiology of the pancytopenis most likely from uncontrolled HIV marrow suppression. cxr- negative as per report read by radiologist. afebrile leukopenia and anemia and thrombocytoepnia. plan- check cd4 and Vl. neutropenic precautions. no objection to continuing with po bactrim for PCP prophylaxis as there is no radiologica evidence of pulm disease at this time. check chect CT for better evaluation. check ABG on RA. start pt. on atripla now. thank you for allowing me to take part in the care of this patient. all above d/w Dr.Pierre Thakkar and [facility].
[2017-08-18 12:05] LABS: BASO % 0.6 % (0.0-2.0); EOS % 0.2 % (0.0-4.0); HEMOGLOBIN 8.7 g/dL (12.0-18.0); LYMPH # 0.1 K/uL (1.0-4.3); MEAN CELL VOLUME 86.6 fl (80.0-94.0); MEAN CORPUSCULAR HEMOGLOBIN 28.9 pg (27.0-31.0); MEAN CORPUSCULAR HGB CONC 33.4 g/dL (33.0-37.0); MEAN PLATELET VOLUME 9.9 fl (7.2-11.7); MONO # 0.1 K/uL (0.0-0.8); MONO % 11.1 % (0.0-10.0); NEUT # 0.5 K/uL (1.8-7.0); NEUT % 77.1 % (50.0-75.0); RBC 2.99 Mil/uL (4.40-5.90); RED CELL DISTRIBUTION WIDTH 16.5 % (11.5-14.5)
[2017-08-18 12:18] LABS: PLATELET COUNT 97 K/uL (130-400); WHITE BLOOD COUNT 0.6 K/uL (4.8-10.8)
[2017-08-18 12:45] LABS: BANDS 2 % (0-2); LYMPHOCYTE 18 % (20-50); MONOCYTE 6 % (0-10); MYELOCYTE 4 % (0-0); NEUTROPHIL 70 % (42-75); PLATELET ESTIMATE DECREASED (NORMAL); TOTAL CELLS COUNTED 100
[2017-08-18 12:48] LABS: ACANTHOCYTES SLIGHT; BURR CELLS SLIGHT; GIANT PLATELETS PRESENT; LARGE PLATELETS PRESENT; POIKILOCYTOSIS SLIGHT
[2017-08-18 12:49] LABS: OVALOCYTES SLIGHT; SPHEROCYTES SLIGHT
[2017-08-18 12:50] LABS: ANISOCYTOSIS MODERATE; HYPOCHROMIC SLIGHT; MICROCYTOSIS SLIGHT
[2017-08-18 13:07] LABS: HEPATITIS B SURFACE AG Negative (NEGATIVE)
[2017-08-18 13:13] LABS: HEPATITIS A IGM NEGATIVE (NEGATIVE); HEPATITIS B CORE AB NEGATIVE (NEGATIVE)
[2017-08-18 13:25] LABS: FOLATE 9.7 ng/mL; HEPATITIS C ANTIBODY NEGATIVE (NEGATIVE)
[2017-08-18] MEDS ORDERED: DiphenhydrAMINE 50 mg/ml Inj IVP STA (13:45)
[2017-08-18] MEDS ORDERED: DiphenhydrAMINE 50 mg/ml Inj ONE ×2 (13:51→13:52)
[2017-08-18] MEDS ORDERED: Iohexol 300 100 ML IJ ONE (14:31)
--- NOTE | 2017-08-18 16:13 | CP.PCM.CON ---
History of Present Illness - History of Present Illness History of Present Illness: 52 year old male with a history of HIV/AIDS noncompliant with HAART, admitted with increasing fatigue and weightloss, with pancytopenia. The patient reports he has been told in the past his blood was low but refused bone marrow biopsy. He denies abnormal bleeding and bruising. He does note to subjective fevers and chills. Past medical history: HIV/AIDS Past surgical history: Denies Family history: Denies hematologic and oncologic problems Social history: Denies tobacco, alcohol, and illicit drug use Allergies: NKA Review of systems: All remaining review of systems including HEENT, cardiovascular, respiratory,gastrointestinal, genitourinary,musculoskeletal, dermatologic, neurologic, and psychiatric are negative unless mentioned in the HPI. Past Patient History - Past Medical History & Family History Past Medical History?: Yes - Past Social History Smoking Status: Never Smoked Alcohol: None Drugs: Denies Home Situation {Lives}: Friends - CARDIAC Hx Cardiac Disorders: No - PULMONARY Hx Pneumonia: Yes - NEUROLOGICAL Hx Neurological Disorder: No - ENDOCRINE/METABOLIC Hx Endocrine Disorders: No - HEMATOLOGICAL/ONCOLOGICAL Hx AIDS: Yes Hx Human Immunodeficiency Virus (HIV): Yes - INTEGUMENTARY Hx Dermatological Problems: No - MUSCULOSKELETAL/RHEUMATOLOGICAL Hx Musculoskeletal Disorders: No - GASTROINTESTINAL Hx Gastrointestinal Disorders: Yes Hx Hemorrhoids: Yes - GENITOURINARY/GYNECOLOGICAL Hx Genitourinary Disorders: No - PSYCHIATRIC Hx Psychophysiologic Disorder: No - SURGICAL HISTORY Hx Surgeries: No - ANESTHESIA Hx Anesthesia: No Hx Anesthesia Reactions: No Hx Malignant Hyperthermia: No Meds Allergies/Adverse Reactions: Allergies Allergy/AdvReac Type Severity Reaction Status Date / Time No Known Allergies Allergy Verified 04/09/17 02:06 - Medications Medications: Current Medications Acetaminophen (Tylenol 325mg Tab) 650 mg PO Q6 PRN PRN Reason: Fever >100.4 F Albuterol/Ipratropium (Duoneb 3 Mg/0.5 Mg (3 Ml) Ud) 3 ml INH RQID PRN PRN Reason: Shortness of Breath Azithromycin (Zithromax) 1,200 mg PO QWK MARY ANN PRN Reason: Protocol Sodium Chloride (Sodium Chloride 0.9%) 1,000 mls @ 999 mls/hr IV .Q1H1M MARY ANN Stop: 08/18/17 19:31 Sodium Chloride (Sodium Chloride 0.9%) 1,000 mls @ 100 mls/hr IV .Q10H [facility] Last Admin: 08/18/17 06:18 Dose: Not Given Trimethoprim/Sulfamethoxazole (315 mg/ Dextrose) 500 mls @ 250 mls/hr IVPB Q8@ 0500,1300,2100 [facility] PRN Reason: Protocol Last Admin: 08/18/17 12:57 Dose: 250 mls/hr Prednisone (Prednisone Tab) 40 mg PO BID [facility] Last Admin: 08/18/17 08:55 Dose: 40 mg Physical Exam - Head Exam Head Exam: ATRAUMATIC - Eye Exam Eye Exam: Normal appearance - ENT Exam ENT Exam: Mucous Membranes Dry - Respiratory Exam Respiratory Exam: NORMAL BREATHING PATTERN - Cardiovascular Exam Cardiovascular Exam: +S1, +S2 - GI/Abdominal Exam GI & Abdominal Exam: Normal Bowel Sounds - Extremities Exam Extremities exam: Positive for: normal inspection - Neurological Exam Neurological exam: Oriented x3 - Psychiatric Exam Psychiatric exam: Normal Affect, Normal Mood - Skin Skin Exam: Warm Results - Vital Signs Recent Vital Signs: Last Vital Signs Temp 97.6 F 08/18/17 15:43 Pulse 65 08/18/17 15:43 Resp 20 08/18/17 15:43 BP 110/72 08/18/17 15:43 Pulse Ox 97 08/18/17 15:43 - Labs Result Diagrams: 08/18/17 07:26 08/18/17 05:40 Labs: Laboratory Results - last 24 hr 08/17/17 08/17/17 08/17/17 00:57 16:00 16:00 WBC 1.6 L* RBC 3.29 L Hgb 9.4 L Hct 28.8 L MCV 87.7 MCH 28.5 MCHC 32.4 L RDW 16.9 H Plt Count 113 L D MPV 9.8 Neut % (Auto) 79.5 H Lymph % (Auto) 7.1 L [place] % (Auto) 11.6 H Eos % (Auto) 0.7 Baso % (Auto) 1.1 Neut # (Auto) 1.2 L Lymph # (Auto) 0.1 L [place] # (Auto) 0.2 Eos # (Auto) 0.0 Baso # (Auto) 0.0 Neutrophils % (Manual) 86 H Band Neutrophils % Lymphocytes % (Manual) 9 L Monocytes % (Manual) 3 Myelocytes % 2 H Platelet Estimate Decreased L Large Platelets Giant Platelets Hypochromasia (manual) Poikilocytosis (manual Anisocytosis (manual) Slight Microcytosis (manual) Macrocytosis (manual) Spherocytes Ovalocytes Slight [place] Cells Acanthocytes (Spur) PT INR APTT pO2 26 L VBG pH 7.39 VBG pCO2 40 VBG HCO3 23.0 VBG Total CO2 25.4 VBG O2 Sat (Calc) 48.5 VBG Base Excess -0.7 L VBG Potassium 4.2 Sodium 129.0 L 134 Chloride 102.0 95 L Glucose 132 H Lactate 1.4 FiO2 21.0 Potassium 4.4 Carbon Dioxide 20 L Anion Gap 23 H BUN 28 H Creatinine 0.7 L Est GFR ( Amer) > 60 Est GFR (Non-Af Amer) > 60 Random Glucose 93 Lactic Acid Calcium 8.8 Total Bilirubin 0.5 AST 66 H D ALT 31 Alkaline Phosphatase 171 H Total Protein 7.0 Albumin 3.1 L Globulin 3.9 Albumin/Globulin Ratio 0.8 L Triglycerides Cholesterol LDL Cholesterol Direct HDL Cholesterol Vitamin B12 Folate Procalcitonin TSH 3rd Generation Venous Blood Potassium 4.2 Urine Opiates Screen Urine Methadone Screen Ur Barbiturates Screen Ur Phencyclidine Scrn Ur Amphetamines Screen U Benzodiazepines Scrn U Oth Cocaine Metabols U Cannabinoids Screen Hepatitis A IgM Ab Hep Bs Antigen Hep B Core IgM Ab Hepatitis C Antibody Blood Type Blood Type Confirm Antibody Screen BBK History Checked 08/17/17 08/17/17 08/17/17 16:00 16:00 16:16 WBC RBC Hgb Hct MCV MCH MCHC RDW Plt Count MPV Neut % (Auto) Lymph % (Auto) [place] % (Auto) Eos % (Auto) Baso % (Auto) Neut # (Auto) Lymph # (Auto) [place] # (Auto) Eos # (Auto) Baso # (Auto) Neutrophils % (Manual) Band Neutrophils % Lymphocytes % (Manual) Monocytes % (Manual) Myelocytes % Platelet Estimate Large Platelets Giant Platelets Hypochromasia (manual) Poikilocytosis (manual Anisocytosis (manual) Microcytosis (manual) Macrocytosis (manual) Spherocytes Ovalocytes [place] Cells Acanthocytes (Spur) PT 14.5 H INR 1.3 H APTT 29.7 pO2 VBG pH VBG pCO2 VBG HCO3 VBG Total CO2 VBG O2 Sat (Calc) VBG Base Excess VBG Potassium Sodium Chloride Glucose Lactate FiO2 Potassium Carbon Dioxide Anion Gap BUN Creatinine Est GFR ( Amer) Est GFR (Non-Af Amer) Random Glucose Lactic Acid Calcium Total Bilirubin AST ALT Alkaline Phosphatase Total Protein Albumin Globulin Albumin/Globulin Ratio Triglycerides Cholesterol LDL Cholesterol Direct HDL Cholesterol Vitamin B12 Folate Procalcitonin TSH 3rd Generation Venous Blood Potassium Urine Opiates Screen Urine Methadone Screen Ur Barbiturates Screen Ur Phencyclidine Scrn Ur Amphetamines Screen U Benzodiazepines Scrn U Oth Cocaine Metabols U Cannabinoids Screen Hepatitis A IgM Ab Hep Bs Antigen Hep B Core IgM Ab Hepatitis C Antibody Blood Type O POSITIVE Blood Type Confirm O POSITIVE Antibody Screen Negative BBK History Checked No verified bt 08/17/17 08/17/17 08/17/17 20:11 20:11 20:11 WBC RBC Hgb Hct MCV MCH MCHC RDW Plt Count MPV Neut % (Auto) Lymph % (Auto) [place] % (Auto) Eos % (Auto) Baso % (Auto) Neut # (Auto) Lymph # (Auto) [place] # (Auto) Eos # (Auto) Baso # (Auto) Neutrophils % (Manual) Band Neutrophils % Lymphocytes % (Manual) Monocytes % (Manual) Myelocytes % Platelet Estimate Large Platelets Giant Platelets Hypochromasia (manual) Poikilocytosis (manual Anisocytosis (manual) Microcytosis (manual) Macrocytosis (manual) Spherocytes Ovalocytes [place] Cells Acanthocytes (Spur) PT INR APTT pO2 VBG pH VBG pCO2 VBG HCO3 VBG Total CO2 VBG O2 Sat (Calc) VBG Base Excess VBG Potassium Sodium Chloride Glucose Lactate FiO2 Potassium Carbon Dioxide Anion Gap BUN Creatinine Est GFR ( Amer) Est GFR (Non-Af Amer) Random Glucose Lactic Acid Calcium Total Bilirubin AST ALT Alkaline Phosphatase Total Protein Albumin Globulin Albumin/Globulin Ratio Triglycerides 260 H Cholesterol 185 LDL Cholesterol Direct 106 HDL Cholesterol 29 L Vitamin B12 826 Folate 9.7 Procalcitonin 0.20 TSH 3rd Generation 5.77 H Venous Blood Potassium Urine Opiates Screen Urine Methadone Screen Ur Barbiturates Screen Ur Phencyclidine Scrn Ur Amphetamines Screen U Benzodiazepines Scrn U Oth Cocaine Metabols U Cannabinoids Screen Hepatitis A IgM Ab Negative Hep Bs Antigen Negative Hep B Core IgM Ab Negative Hepatitis C Antibody Negative Blood Type Blood Type Confirm Antibody Screen BBK History Checked 08/17/17 08/18/17 08/18/17 23:04 01:30 05:40 WBC RBC Hgb Hct MCV MCH MCHC RDW Plt Count MPV Neut % (Auto) Lymph % (Auto) [place] % (Auto) Eos % (Auto) Baso % (Auto) Neut # (Auto) Lymph # (Auto) [place] # (Auto) Eos # (Auto) Baso # (Auto) Neutrophils % (Manual) Band Neutrophils % Lymphocytes % (Manual) Monocytes % (Manual) Myelocytes % Platelet Estimate Large Platelets Giant Platelets Hypochromasia (manual) Poikilocytosis (manual Anisocytosis (manual) Microcytosis (manual) Macrocytosis (manual) Spherocytes Ovalocytes [place] Cells Acanthocytes (Spur) PT INR APTT pO2 VBG pH VBG pCO2 VBG HCO3 VBG Total CO2 VBG O2 Sat (Calc) VBG Base Excess VBG Potassium Sodium 132 Chloride 97 L Glucose Lactate FiO2 Potassium 4.8 Carbon Dioxide 22 Anion Gap 18 BUN 17 Creatinine 0.5 L Est GFR ( Amer) > 60 Est GFR (Non-Af Amer) > 60 Random Glucose 183 H Lactic Acid 1.0 Calcium 8.2 L Total Bilirubin 0.4 AST 50 ALT 31 Alkaline Phosphatase 143 H Total Protein 6.5 Albumin 2.8 L Globulin 3.7 Albumin/Globulin Ratio 0.8 L Triglycerides Cholesterol LDL Cholesterol Direct HDL Cholesterol Vitamin B12 Folate Procalcitonin TSH 3rd Generation Venous Blood Potassium Urine Opiates Screen Negative Urine Methadone Screen Negative Ur Barbiturates Screen Negative Ur Phencyclidine Scrn Negative Ur Amphetamines Screen Negative U Benzodiazepines Scrn Negative U Oth Cocaine Metabols Negative U Cannabinoids Screen Negative Hepatitis A IgM Ab Hep Bs Antigen Hep B Core IgM Ab Hepatitis C Antibody Blood Type Blood Type Confirm Antibody Screen BBK History Checked 08/18/17 07:26 WBC 0.6 L* D RBC 2.99 L Hgb 8.7 L Hct 25.9 L MCV 86.6 MCH 28.9 MCHC 33.4 RDW 16.5 H Plt Count 97 L MPV 9.9 Neut % (Auto) 77.1 H Lymph % (Auto) 11.0 L [place] % (Auto) 11.1 H Eos % (Auto) 0.2 Baso % (Auto) 0.6 Neut # (Auto) 0.5 L Lymph # (Auto) 0.1 L [place] # (Auto) 0.1 Eos # (Auto) 0.0 Baso # (Auto) 0.0 Neutrophils % (Manual) 70 Band Neutrophils % 2 Lymphocytes % (Manual) 18 L Monocytes % (Manual) 6 Myelocytes % 4 H Platelet Estimate Decreased L Large Platelets Present Giant Platelets Present Hypochromasia (manual) Slight Poikilocytosis (manual Slight Anisocytosis (manual) Moderate Microcytosis (manual) Slight Macrocytosis (manual) Slight Spherocytes Slight Ovalocytes Slight [place] Cells Slight Acanthocytes (Spur) Slight PT INR APTT pO2 VBG pH VBG pCO2 VBG HCO3 VBG Total CO2 VBG O2 Sat (Calc) VBG Base Excess VBG Potassium Sodium Chloride Glucose Lactate FiO2 Potassium Carbon Dioxide Anion Gap BUN Creatinine Est GFR ( Amer) Est GFR (Non-Af Amer) Random Glucose Lactic Acid Calcium Total Bilirubin AST ALT Alkaline Phosphatase Total Protein Albumin Globulin Albumin/Globulin Ratio Triglycerides Cholesterol LDL Cholesterol Direct HDL Cholesterol Vitamin B12 Folate Procalcitonin TSH 3rd Generation Venous Blood Potassium Urine Opiates Screen Urine Methadone Screen Ur Barbiturates Screen Ur Phencyclidine Scrn Ur Amphetamines Screen U Benzodiazepines Scrn U Oth Cocaine Metabols U Cannabinoids Screen Hepatitis A IgM Ab Hep Bs Antigen Hep B Core IgM Ab Hepatitis C Antibody Blood Type Blood Type Confirm Antibody Screen BBK History Checked Assessment & Plan (1) Pancytopenia Assessment and Plan: likely secondary to AIDS the patient deferred bone marrow biopsy will give a dose of Granix for neutropenia; on neutropenic precautions will evaluate iron/b12/iron stores No current transfusion indications Thank you for this interesting consult. Status: Acute
--- NOTE | 2017-08-18 17:47 | CT ---
PROCEDURE: CT HEAD WITH AND WITHOUT CONTRAST HISTORY: Wasting and anemia COMPARISON: None available. TECHNIQUE: Axial computed tomography images were obtained through the head/brain with and without intravenous contrast enhancement. Contrast dose: 95 cc Omnipaque 300 Radiation dose: Total exam DLP = 2080.71 mGy-cm. This CT exam was performed using one or more of the following dose reduction techniques: Automated exposure control, adjustment of the mA and/or kV according to patient size, and/or use of iterative reconstruction technique. FINDINGS: HEMORRHAGE: No intracranial hemorrhage. BRAIN: No mass, mass effect or edema. No abnormal intracranial enhancement. No atrophy or chronic microvascular ischemic changes. VENTRICLES: Unremarkable. No hydrocephalus. CALVARIUM: Unremarkable. SINUSES: Unremarkable as visualized. No significant inflammatory changes. MASTOID AIR CELLS: Unremarkable as visualized. No mastoid effusion. OTHER FINDINGS: None. IMPRESSION: Unremarkable pre and post contrast CT of the head. No acute intracranial abnormalities. No significant findings to account for the clinical presentation.
[2017-08-19 06:04] LABS: BASO % 0.3 % (0.0-2.0); HEMOGLOBIN 8.3 g/dL (12.0-18.0); LYMPH # 0.1 K/uL (1.0-4.3); LYMPH % 15.2 % (20.0-40.0); MEAN CELL VOLUME 87.3 fl (80.0-94.0); MEAN CORPUSCULAR HEMOGLOBIN 28.8 pg (27.0-31.0); MEAN PLATELET VOLUME 10.1 fl (7.2-11.7); MONO # 0.1 K/uL (0.0-0.8); MONO % 17.2 % (0.0-10.0); NEUT # 0.5 K/uL (1.8-7.0); NEUT % 67.3 % (50.0-75.0); NRBC % 1.8 % (0.0-0.0); RBC 2.87 Mil/uL (4.40-5.90)
[2017-08-19 06:14] LABS: WHITE BLOOD COUNT 0.7 K/uL (4.8-10.8)
[2017-08-19 06:33] LABS: BLOOD UREA NITROGEN 19 mg/dl (9-20); CALCIUM 8.5 mg/dL (8.4-10.2); GFR AFRICAN-AMERICAN > 60; GFR NON-AFRICAN AMERICAN > 60
[2017-08-19 07:44] VITALS: RESP 20
--- NOTE | 2017-08-19 09:13 | CP.PCM.PN ---
Subjective - Date & Time of Evaluation Date of Evaluation: 08/19/17 Time of Evaluation: 07:50 - Subjective Subjective: Pt was seen and evaluated at bedside this am. Developed rash yesterday- possibly from bactrim. Stated he feels "good" today. He refused CT scan last night, but is agreeable to getting it today. Objective - Vital Signs/Intake and Output Vital Signs (last 24 hours): Temp Pulse Resp BP Pulse Ox 97.2 F L 64 20 156/63 H 95 08/19/17 07:43 08/19/17 07:43 08/19/17 07:43 08/19/17 07:43 08/19/17 07:43 - Medications Medications: Current Medications Acetaminophen (Tylenol 325mg Tab) 650 mg PO Q6 PRN PRN Reason: Fever >100.4 F Albuterol/Ipratropium (Duoneb 3 Mg/0.5 Mg (3 Ml) Ud) 3 ml INH RQID PRN PRN Reason: Shortness of Breath Azithromycin (Zithromax) 1,200 mg PO QWK MARY ANN PRN Reason: Protocol Last Admin: 08/18/17 17:05 Dose: 1,200 mg - Labs Labs: 08/19/17 05:30 08/19/17 05:30 PT 14.5 Seconds (9.8-13.1) H 08/17/17 16:00 INR 1.3 (0.9-1.2) H 08/17/17 16:00 APTT 29.7 Seconds (25.6-37.1) 08/17/17 16:00 - Constitutional Appears: Non-toxic, Younger Than Stated Age, Cachectic - Eye Exam Eye Exam: Normal appearance - ENT Exam ENT Exam: Mucous Membranes Moist - Respiratory Exam Respiratory Exam: Clear to Ausculation Bilateral, NORMAL BREATHING PATTERN. absent: Wheezes, Respiratory Distress - Cardiovascular Exam Cardiovascular Exam: REGULAR RHYTHM, +S1, +S2 - GI/Abdominal Exam GI & Abdominal Exam: Soft, Normal Bowel Sounds - Extremities Exam Extremities Exam: absent: Calf Tenderness, Pedal Edema - Back Exam Additional comments: multiple spots of erythema, rash, possibly allergic - Neurological Exam Neurological Exam: Alert, Awake - Skin Skin Exam: Dry, Intact, Rash Assessment and Plan - Assessment and Plan (Free Text) Assessment: 52 y/o male with AIDS admitted for pancytopenia, generalized weakness/ deconditioning. Plan: #) AIDS - CD4% 4, Abs count < 20 this admission, last known from 03/2016 CD4% 5, abs count 37 - Head CT with and without contrast - no acute pathology - CT chest w/o contrast, pending - RPR neg, hepatitis panel neg, toxoplasma neg - UDS neg - B12 wnl, folate wnl - Lipid panel- total 185, LDL 106, HDL 29, - AFB blood culture pending - CMV IgG,IgM pending - neutropenic precautions, reverse isolation - start MAC ppx with Azithromycin 1200mg weekly - start PCP prophylaxis with atovaquone; pending G6PD for dapsone - ID consult, Dr. Crump, recs appreciated #) Pancytopenia - hematology consult Dr. Rey -likely due to AIDS, will give 1 dose granix - denies ischemic/anemic symptoms - f/u CBC #) Generalized weakness/deconditioning - regular diet - PT eval and treatment - Duo-nebs PRN - monitor vitals/POX #) Diet - regular diet #) Prophylaxis - SCDS/ambulation
[2017-08-19 11:32] LABS: % CD4 (T HELPER CELL) 4 Percent (30-61); % CD8 (SUPPRESSOR T CELL) 50 Percent (12-42); ABSOLUTE CD4 CELLS <20 Cells/mcL (490-1740); ABSOLUTE CD8 CELLS 54 Cells/mcL (180-1170); ABSOLUTE LYMPHOCYTES 109 Cells/mcL (850-3900); HELPER/SUPPRESSOR RATIO 0.08 Ratio (0.86-5.00)
--- NOTE | 2017-08-19 18:25 | CT ---
PROCEDURE: CT scan chest dated 08/19/2017 HISTORY: Aids, pancytopenia, weakness COMPARISON: Comparison made with chest radiograph obtained earlier same day. TECHNIQUE: Contiguous axial images were obtained through the chest without intravenous contrast enhancement. Sagittal and coronal reconstructions were performed. Radiation dose (DLP): 329.00 mGy-cm. This CT exam was performed using one or more of the following dose reduction techniques: Automated exposure control, adjustment of the mA and/or kV according to patient size, and/or use of iterative reconstruction technique. FINDINGS: LUNGS: No focal consolidation. There appears to be some minimal curvilinear atelectasis/ scarring change superior segment left upper lobe. In addition, some minimal passive type atelectasis both posterior sulci. . Small approximately 3 mm nodule lateral aspect right this middle lobe bordering the minor fissure (best seen on sagittal sequence image number 35. . There is a small approximately 2 mm pleural-based nodular density seen in the lateral convexity left upper lobe best seen on axial series 3, image number 34 Tiny 2.5 mm pleural based nodule located lateral aspect right lower lobe bordering the major fissure (best seen on axial of series 3, image number 86. Lung encarnacion are otherwise clear. MEDIASTINUM: Heart size is within range of normal however there is a tiny pericardial effusion. There is also evidence of anemia with low-attenuation appearance of cardiac chambers. The ascending thoracic aorta measures approximately 3.52 cm and descending thoracic aorta measures approximately 2.2 cm. Pulmonary trunk measures approximately 2.9 cm. Few small medium-sized nonspecific mediastinal lymph nodes are present. Evaluation for hilar adenopathy is limited due to the lack of circulating intravenous contrast material. Central airways are midline and patent. No large central endoluminal lesions. There is a small hiatal hernia with slight wall thickening of the distal esophagus likely due to protrusion of gastric mucosa. Possibility of esophagitis not excluded. PLEURA: No pleural fluid. No pneumothorax. BONES: Mild multilevel degenerative spondylosis of the thoracic spine. No acute compression fractures no retropulsed fragments. UPPER ABDOMEN: Eight Spleen is enlarged measuring nearly 15 cm in AP dimension. Note made of layering sludge and/or gravel within the dependent portion of the gallbladder. There appears to be multiple small nonspecific retroperitoneal lymph nodes. OTHER FINDINGS: None. IMPRESSION: No acute consolidation. There are few scattered nodules throughout the right lung. Followup at 6 month interval could be performed to assess stability. Some minimal scarring atelectasis both posterior sulci. Findings consistent with anemia as above. Splenomegaly. Layering sludge and/or gravel within the gallbladder lumen.
[2017-08-20 07:09] LABS: BASO % 0.2 % (0.0-2.0); EOS % 0.1 % (0.0-4.0); HEMOGLOBIN 8.5 g/dL (12.0-18.0); LYMPH # 0.1 K/uL (1.0-4.3); LYMPH % 0.7 % (20.0-40.0); MEAN CELL VOLUME 88.5 fl (80.0-94.0); MEAN CORPUSCULAR HEMOGLOBIN 28.4 pg (27.0-31.0); MEAN CORPUSCULAR HGB CONC 32.1 g/dL (33.0-37.0); MONO # 0.4 K/uL (0.0-0.8); MONO % 1.6 % (0.0-10.0); NEUT # 22.2 K/uL (1.8-7.0); NEUT % 97.4 % (50.0-75.0); PLATELET COUNT 117 K/uL (130-400); RBC 2.98 Mil/uL (4.40-5.90); RED CELL DISTRIBUTION WIDTH 17.1 % (11.5-14.5); WHITE BLOOD COUNT 22.8 K/uL (4.8-10.8)
--- NOTE | 2017-08-20 07:56 | CP.PCM.PN ---
Objective - Vital Signs/Intake and Output Vital Signs (last 24 hours): Temp Pulse Resp BP Pulse Ox 98.1 F 74 20 113/76 99 08/20/17 07:42 08/20/17 07:42 08/20/17 07:42 08/20/17 07:42 08/20/17 07:42 - Medications Medications: Current Medications Acetaminophen (Tylenol 325mg Tab) 650 mg PO Q6 PRN PRN Reason: Fever >100.4 F Albuterol/Ipratropium (Duoneb 3 Mg/0.5 Mg (3 Ml) Ud) 3 ml INH RQID PRN PRN Reason: Shortness of Breath Atovaquone (Mepron) 1,500 mg PO DAILY MARY ANN PRN Reason: Protocol - Labs Labs: 08/20/17 06:00 08/19/17 05:30 PT 14.5 Seconds (9.8-13.1) H 08/17/17 16:00 INR 1.3 (0.9-1.2) H 08/17/17 16:00 APTT 29.7 Seconds (25.6-37.1) 08/17/17 16:00
[2017-08-20] MEDS ORDERED: Atovaquone 750 mg/5 ml Susp UD PO SCH (09:00)
--- NOTE | 2017-08-20 11:59 | CP.PCM.DIS ---
Provider - Provider Date of Admission: 08/17/17 18:01 Attending physician: Leanna Higuera MD Primary care physician: Past PMD at [facility] Consults: Infectious Disease - Dr. Crump Hematology/Onc- Dr. Rey Time Spent in preparation of Discharge (in minutes): 35 Diagnosis - Discharge Diagnosis (1) AIDS Status: Chronic Comment: On this admission, pt has CD4 count of less than 20; last known CD4 count in 2016 was 37. No PCP pneumonia on chest X-ray. Negative toxoplasma, RPR , hepatitis panel. (2) Leukopenia Status: Chronic Comment: Seen by photovoltaic installation technician Dr. Rey. S/p one dose granix; reactive elevation in WBC noted. Hospital Course - Lab Results Lab Results: Micro Results 08/17/17 20:11 Blood Blood Culture - Preliminary NO GROWTH AFTER 48 HOURS 08/18/17 13:47 Sputum Induced Gram Stain - Final Most Recent Lab Values WBC 22.8 K/uL (4.8-10.8) H D 08/20/17 06:00 RBC 2.98 Mil/uL (4.40-5.90) L 08/20/17 06:00 Hgb 8.5 g/dL (12.0-18.0) L 08/20/17 06:00 Hct 26.4 % (35.0-51.0) L 08/20/17 06:00 MCV 88.5 fl (80.0-94.0) 08/20/17 06:00 MCH 28.4 pg (27.0-31.0) 08/20/17 06:00 MCHC 32.1 g/dL (33.0-37.0) L 08/20/17 06:00 RDW 17.1 % (11.5-14.5) H 08/20/17 06:00 Plt Count 117 K/uL (130-400) L D 08/20/17 06:00 MPV 10.0 fl (7.2-11.7) 08/20/17 06:00 Neut % (Auto) 97.4 % (50.0-75.0) H 08/20/17 06:00 Lymph % (Auto) 0.7 % (20.0-40.0) L 08/20/17 06:00 [place] % (Auto) 1.6 % (0.0-10.0) 08/20/17 06:00 Eos % (Auto) 0.1 % (0.0-4.0) 08/20/17 06:00 Baso % (Auto) 0.2 % (0.0-2.0) 08/20/17 06:00 Neut # (Auto) 22.2 K/uL (1.8-7.0) H 08/20/17 06:00 Lymph # (Auto) 0.1 K/uL (1.0-4.3) L 08/20/17 06:00 [place] # (Auto) 0.4 K/uL (0.0-0.8) 08/20/17 06:00 Eos # (Auto) 0.0 K/uL (0.0-0.7) 08/20/17 06:00 Baso # (Auto) 0.0 K/uL (0.0-0.2) 08/20/17 06:00 Neutrophils % (Manual) 70 % (42-75) 08/18/17 07:26 Band Neutrophils % 2 % (0-2) 08/18/17 07:26 Lymphocytes % (Manual) 18 % (20-50) L 08/18/17 07:26 Monocytes % (Manual) 6 % (0-10) 08/18/17 07:26 Myelocytes % 4 % (0-0) H 08/18/17 07:26 Platelet Estimate Decreased (NORMAL) L 08/18/17 07:26 Large Platelets Present 08/18/17 07:26 Giant Platelets Present 08/18/17 07:26 Hypochromasia (manual) Slight 08/18/17 07:26 Poikilocytosis (manual Slight 08/18/17 07:26 Anisocytosis (manual) Moderate 08/18/17 07:26 Microcytosis (manual) Slight 08/18/17 07:26 Macrocytosis (manual) Slight 08/18/17 07:26 Spherocytes Slight 08/18/17 07:26 Ovalocytes Slight 08/18/17 07:26 [place] Cells Slight 08/18/17 07:26 Acanthocytes (Spur) Slight 08/18/17 07:26 PT 14.5 Seconds (9.8-13.1) H 08/17/17 16:00 INR 1.3 (0.9-1.2) H 08/17/17 16:00 APTT 29.7 Seconds (25.6-37.1) 08/17/17 16:00 pO2 26 mm/Hg (30-55) L 08/17/17 00:57 VBG pH 7.39 (7.32-7.43) 08/17/17 00:57 VBG pCO2 40 mmHg (40-60) 08/17/17 00:57 VBG HCO3 23.0 mmol/L 08/17/17 00:57 VBG Total CO2 25.4 mmol/L (22-28) 08/17/17 00:57 VBG O2 Sat (Calc) 48.5 % (40-65) 08/17/17 00:57 VBG Base Excess -0.7 mmol/L (0.0-2.0) L 08/17/17 00:57 VBG Potassium 4.2 mmol/L (3.6-5.2) 08/17/17 00:57 Sodium 129.0 mmol/L (132-148) L 08/17/17 00:57 Chloride 102.0 mmol/L (98-107) 08/17/17 00:57 Glucose 132 mg/dL (75-110) H 08/17/17 00:57 Lactate 1.4 mmol/L (0.7-2.1) 08/17/17 00:57 FiO2 21.0 % 08/17/17 00:57 Sodium 139 mmol/l (132-148) 08/19/17 05:30 Potassium 4.6 MMOL/L (3.6-5.0) 08/19/17 05:30 Chloride 104 mmol/L (98-107) 08/19/17 05:30 Carbon Dioxide 23 mmol/L (22-30) 08/19/17 05:30 Anion Gap 17 (10-20) 08/19/17 05:30 BUN 19 mg/dl (9-20) 08/19/17 05:30 Creatinine 0.8 mg/dl (0.8-1.5) 08/19/17 05:30 Est GFR ( Amer) > 60 08/19/17 05:30 Est GFR (Non-Af Amer) > 60 08/19/17 05:30 Random Glucose 119 mg/dL (75-110) H 08/19/17 05:30 Lactic Acid 1.0 MMOL/L (0.7-2.1) 08/18/17 01:30 Calcium 8.5 mg/dL (8.4-10.2) 08/19/17 05:30 Total Bilirubin 0.4 mg/dl (0.2-1.3) 08/18/17 05:40 AST 50 U/L (17-59) 08/18/17 05:40 ALT 31 U/L (21-72) 08/18/17 05:40 Alkaline Phosphatase 143 U/L (38-126) H 08/18/17 05:40 Total Protein 6.5 G/DL (6.3-8.2) 08/18/17 05:40 Albumin 2.8 g/dL (3.5-5.0) L 08/18/17 05:40 Globulin 3.7 gm/dL (2.2-3.9) 08/18/17 05:40 Albumin/Globulin Ratio 0.8 (1.0-2.1) L 08/18/17 05:40 Triglycerides 260 mg/DL (0-149) H 08/17/17 20:11 Cholesterol 185 mg/dL (0-199) 08/17/17 20:11 LDL Cholesterol Direct 106 mg/dL (0-129) 08/17/17 20:11 HDL Cholesterol 29 MG/DL (30-70) L 08/17/17 20:11 Vitamin B12 826 pg/mL (239-931) 08/17/17 20:11 Folate 9.7 ng/mL 08/17/17 20:11 Procalcitonin 0.20 NG/ML (0.19-0.49) 08/17/17 20:11 TSH 3rd Generation 5.77 mIU/ML (0.46-4.68) H 08/17/17 20:11 Venous Blood Potassium 4.2 mmol/L (3.6-5.2) 08/17/17 00:57 Urine Opiates Screen Negative (NEGATIVE) 08/17/17 23:04 Urine Methadone Screen Negative (NEGATIVE) 08/17/17 23:04 Ur Barbiturates Screen Negative (NEGATIVE) 08/17/17 23:04 Ur Phencyclidine Scrn Negative (NEGATIVE) 08/17/17 23:04 Ur Amphetamines Screen Negative (NEGATIVE) 08/17/17 23:04 U Benzodiazepines Scrn Negative (NEGATIVE) 08/17/17 23:04 U Oth Cocaine Metabols Negative (NEGATIVE) 08/17/17 23:04 U Cannabinoids Screen Negative (NEGATIVE) 08/17/17 23:04 Absolute Lymphs (Flow) 109 Cells/mcL (850-3900) L 08/17/17 20:11 % CD4 Cells 4 Percent (30-61) L 08/17/17 20:11 Absolute CD4 Count <20 Cells/mcL (490-1740) L 08/17/17 20:11 T-Help/Suppress Ratio 0.08 Ratio (0.86-5.00) L 08/17/17 20:11 % CD8 Cells 50 Percent (12-42) H 08/17/17 20:11 Absolute CD8 Count 54 Cells/mcL (180-1170) L 08/17/17 20:11 T-Lymph Analys Comment See note 08/17/17 20:11 RPR Nonreactive (NONREACTIVE) 08/17/17 20:11 Hepatitis A IgM Ab Negative (NEGATIVE) 08/17/17 20:11 Hep Bs Antigen Negative (NEGATIVE) 08/17/17 20:11 Hep B Core IgM Ab Negative (NEGATIVE) 08/17/17 20:11 Hepatitis C Antibody Negative (NEGATIVE) 08/17/17 20:11 Toxoplasma IgG Ab <7.20 IU/mL 08/17/17 20:11 Toxoplasma IgM Ab <8.00 AU/mL 08/17/17 20:11 Blood Type O POSITIVE 08/17/17 16:00 Blood Type Confirm O POSITIVE 08/17/17 16:16 Antibody Screen Negative 08/17/17 16:00 BBK History Checked No verified bt 08/17/17 16:00 - Hospital Course Hospital Course: Pt was admitted due to suspected PCP pneumonia; ID consulted, CXR did now show evidence of PCP pneumonia. He was started on prophylaxis for PCP and MAC. As per [facility] physician Dr. Gregorio- HAART not restarted at this time due to hx noncompliance; will re-eval at [facility] appt. Attending spoke to ID- pt can be discharged. Pt was seen by case management; spoke to renal case manager who started process of getting pt medicaid, and stated he may be seen at [facility] with this insurance status. Pt also given info packet/application for [facility]. Pt seen this am, evaluated at bedside. No shortness of breath, no complaints. Pt has appt at [facility] on Thursday 08/24 at 9:30 am. Discharge Exam - Head Exam Head Exam: ATRAUMATIC - Eye Exam Eye Exam: EOMI, Normal appearance - ENT Exam ENT Exam: Mucous Membranes Moist - Respiratory Exam Respiratory Exam: Clear to PA & Lateral, NORMAL BREATHING PATTERN - Cardiovascular Exam Cardiovascular Exam: REGULAR RHYTHM, +S1, +S2 - GI/Abdominal Exam GI & Abdominal Exam: Normal Bowel Sounds, Soft - Extremities Exam Extremities exam: normal capillary refill, normal inspection - Back Exam Back exam: NORMAL INSPECTION - Neurological Exam Neurological exam: Alert - Skin Skin Exam: Dry, Warm Discharge Plan - Discharge Medications Prescriptions: Atovaquone [Mepron] 1,500 mg PO DAILY #60 packet Azithromycin [Zithromax] 1,200 mg PO QWK #8 tab - Follow Up Plan Condition: FAIR Disposition: HOME/ ROUTINE Instructions: Neutropenia (DC) Additional Instructions: Please go to your followup appointment at the [facility] at the [facility] at [address] [place] [address]. Your appointment is at 9:30 am on Thursday August 24, 2017. Please arrive at 9am. Return to ED if symptoms recur. Referrals: [facility] [Provider Group] - 08/24/17 9:30 am ([facility])
[2017-08-20 12:56] LABS: ANISOCYTOSIS SLIGHT; BANDS 2 % (0-2); LYMPHOCYTE 1 % (20-50); MONOCYTE 3 % (0-10); NEUTROPHIL 94 % (42-75); PLATELET ESTIMATE DECREASED (NORMAL); TOTAL CELLS COUNTED 100
[2017-08-20 12:57] LABS: HYPOCHROMIC SLIGHT; OVALOCYTES SLIGHT
[2017-08-20 12:58] LABS: LARGE PLATELETS PRESENT; SCHISTOCYTES SLIGHT; TEARDROP CELLS SLIGHT
[2017-08-20 16:05] VITALS: BP 97/62; PULSE 85; TEMP 98.2; O2SAT 96
--- NOTE | 2017-08-20 16:20 | CP.PCM.PN ---
Subjective - Date & Time of Evaluation Date of Evaluation: 08/20/17 Time of Evaluation: 11:00 - Subjective Subjective: No complaints. WBC noted elevated from Granix. Objective - Vital Signs/Intake and Output Vital Signs (last 24 hours): Temp Pulse Resp BP Pulse Ox 98.2 F 85 20 97/62 L 96 08/20/17 16:05 08/20/17 16:05 08/20/17 16:05 08/20/17 16:05 08/20/17 16:05 - Medications Medications: Current Medications Acetaminophen (Tylenol 325mg Tab) 650 mg PO Q6 PRN PRN Reason: Fever >100.4 F Albuterol/Ipratropium (Duoneb 3 Mg/0.5 Mg (3 Ml) Ud) 3 ml INH RQID PRN PRN Reason: Shortness of Breath Atovaquone (Mepron) 1,500 mg PO DAILY MARY ANN PRN Reason: Protocol Last Admin: 08/20/17 08:39 Dose: 1,500 mg - Labs Labs: 08/20/17 06:00 08/19/17 05:30 PT 14.5 Seconds (9.8-13.1) H 08/17/17 16:00 INR 1.3 (0.9-1.2) H 08/17/17 16:00 APTT 29.7 Seconds (25.6-37.1) 08/17/17 16:00 - Head Exam Head Exam: ATRAUMATIC - Eye Exam Eye Exam: Normal appearance - ENT Exam ENT Exam: Mucous Membranes Dry - Respiratory Exam Respiratory Exam: NORMAL BREATHING PATTERN - Cardiovascular Exam Cardiovascular Exam: +S1, +S2 - GI/Abdominal Exam GI & Abdominal Exam: Normal Bowel Sounds Assessment and Plan (1) Pancytopenia Assessment & Plan: secondary to AIDS deferred bone marrow evaluation s/p Granix with leukocytosis Status: Acute
== END 2017-08-20 18:05 | disposition home or self-care (01) | DRG 714 ==
LOC: H.ER 14:59 → H.ERHOLD 18:01 → H.MEDSURG1 18:37
PROVIDERS: ADMIT Family Medicine Geriatric Medicine; ATTEND Family Medicine Geriatric Medicine
PROC: 3E0234Z Introduction of Serum, Toxoid and Vaccine into Muscle, Percutaneous Approach (ICD-10-PCS; principal; 2017-08-18)
DX: B20 Human immunodeficiency virus [HIV] disease (principal); R63.4 Abnormal weight loss; D70.3 Neutropenia due to infection; L27.0 Generalized skin eruption due to drugs and medicaments taken internally; Z23 Encounter for immunization; Z91.14 Patient's other noncompliance with medication regimen; T37.0X5A Adverse effect of sulfonamides, initial encounter; Z68.22 Body mass index [BMI] 22.0-22.9, adult; R53.1 Weakness

== ENCOUNTER 2017-09-03 14:52 | Emergency (ER) | payer OTHER ==
[2017-09-03 14:52] VITALS: BMI 21.4
[2017-09-03 15:12] VITALS: BP 102/69; PULSE 87; RESP 16; TEMP 98.2; O2SAT 100
--- NOTE | 2017-09-03 15:18 | ED PDOC ---
HPI: General Adult Time Seen by Provider: 09/03/17 15:17 Chief Complaint (Nursing): Medical Clearance Chief Complaint (Provider): medicine refill History Per: Patient Additional Complaint(s): 52 year old male with HIV, presents requesting refill for Atripla. He states he can't get to [place] to see his PMD and he lost his previous rx. He offers no acute complaints at this time. Past Medical History Reviewed: Historical Data, Nursing Documentation, Vital Signs Vital Signs: Last Vital Signs Temp 98.2 F 09/03/17 15:09 Pulse 87 09/03/17 15:09 Resp 16 09/03/17 15:09 BP 102/69 09/03/17 15:09 Pulse Ox 100 09/03/17 15:17 - Medical History PMH: HIV - Family History Family History: States: No Known Family Hx - Social History Current smoker - smoking cessation education provided: No Alcohol: None Drugs: Denies - Home Medications Home Medications: Ambulatory Orders Medication Instructions Recorded Atovaquone [Mepron] 1,500 mg PO DAILY #60 packet 08/20/17 Azithromycin [Zithromax] 1,200 mg PO QWK #8 tab 08/20/17 Efavirenz/Emtricitabine/Teno 1 tab PO DAILY #30 tab 09/03/17 [Atripla 600 MG-200 MG-300 MG] - Allergies Allergies/Adverse Reactions: Allergies Allergy/AdvReac Type Severity Reaction Status Date / Time No Known Allergies Allergy Verified 09/03/17 15:09 Review of Systems ROS Statement: Except As Marked, All Systems Reviewed And Found Negative Constitutional: Negative for: Fever, Chills Cardiovascular: Negative for: Chest Pain Respiratory: Negative for: Cough Gastrointestinal: Negative for: Vomiting, Diarrhea Genitourinary Male: Negative for: Dysuria Neurological: Negative for: Headache, Dizziness Physical Exam - Reviewed Nursing Documentation Reviewed: Yes Vital Signs Reviewed: Yes - Physical Exam Appears: Positive for: Well, Non-toxic, No Acute Distress Skin: Negative for: Rash Eye Exam: Positive for: Normal appearance Cardiovascular/Chest: Positive for: Regular Rate, Rhythm Respiratory: Positive for: Normal Breath Sounds Neurologic/Psych: Positive for: Alert, Oriented - ECG O2 Sat by Pulse Oximetry: 100 Pulse Ox Interpretation: Normal Medical Decision Making Medical Decision Makin52 year old male here for med refill Plan: Rx atripla given as one time courtesy I stressed to patient importance of following up regularly with PMD. Patient verbalized understanding of this. Disposition - Clinical Impression Clinical Impression: Medicine refill - Patient ED Disposition Is Patient to be Admitted: No Counseled Patient/Family Regarding: Diagnosis, Need For Followup, Rx Given - Disposition Referrals: [facility] [Outside] Disposition: Routine/Home Disposition Time: 15:26 Condition: STABLE Additional Instructions: TAKE MEDS DIRECTED. FOLLOW UP SOON POSSIBLE WITH YOUR PRIMARY DOCTOR TO ARRANGE REFILLS OF YOUR MEDS. Prescriptions: Efavirenz/Emtricitabine/Teno [Atripla 600 MG-200 MG-300 MG] 1 tab PO DAILY #30 tab Instructions: General (DC), Efavirenz, Emtricitabine, and Tenofovir Disoproxil Fumarate, Where to Get Help Paying for Your Prescriptions Forms: [employer] (Ukrainian)
== END 2017-09-03 15:48 | disposition home or self-care (01) ==
LOC: H.ER 14:52
DX: Z76.0 Encounter for issue of repeat prescription (principal)

== ENCOUNTER 2017-09-07 05:02 | Emergency (ER) | payer MEDICAID ==
[2017-09-07 05:02] VITALS: BMI 21.4
[2017-09-07 05:19] VITALS: BP 117/61; PULSE 92; RESP 18; TEMP 98.2; O2SAT 100
--- NOTE | 2017-09-07 05:55 | ED PDOC ---
HPI: Dental Pain/Injury Chief Complaint (Provider): "i have mouth sores and i need a medication for my anemia" Additional Complaint(s): 52 y/o male, AIDS, presents for evaluation of mouth sores as well as demanding anemia medication. Pt reports he has been having sores on the roof of his mouth on and off for the past 3 weeks. Painful. No fever/chills. No hx of HSV. Normal appetite but doesnt eat as much because it hurts to eat certain foods. No N/V, bleeding. Pt also reports he was told he was anemic during prior admission and was never given anything for his anemia, and he would like to be treated. No other complaints/concerns. <Regino Sheppard - Last Filed: 09/07/17 06:47> <Harmeet Mcnamara - Last Filed: 09/07/17 22:06> Time Seen by Provider: 09/07/17 05:29 Chief Complaint (Nursing): Dental Pain Supervising Attending Note - Supervising Attending Note The Documented history was done by the: Physician Marketing Database Coordinator, Attending Physician The documented physical exam was done by the: Physician Marketing Database Coordinator, Attending Physician The documented procedures were done by the: Physician Marketing Database Coordinator, Attending Physician - Attestation: I have personally seen and examined this patient.: Yes I have fully participated in the care of the patient.: Yes I have reviewed all pertinent clinical information, including history, physical exam and plan: Yes <Harmeet Mcnamara - Last Filed: 09/07/17 22:06> Past Medical History Reviewed: Historical Data, Nursing Documentation, Vital Signs Vital Signs: Last Vital Signs Temp 98.2 F 09/07/17 05:17 Pulse 92 H 09/07/17 05:17 Resp 18 09/07/17 05:17 BP 117/61 09/07/17 05:17 Pulse Ox 100 09/07/17 05:17 - Medical History PMH: HIV, Pneumonia - Family History Family History: States: Unknown Family Hx <Regino Sheppard - Last Filed: 09/07/17 06:47> Vital Signs: Last Vital Signs Temp 98.2 F 09/07/17 05:17 Pulse 92 H 09/07/17 05:17 Resp 18 09/07/17 05:17 BP 117/61 09/07/17 05:17 Pulse Ox 100 09/07/17 06:48 <Harmeet Mcnamara - Last Filed: 09/07/17 22:06> - Home Medications Home Medications: Ambulatory Orders Medication Instructions Recorded Atovaquone [Mepron] 1,500 mg PO DAILY #60 packet 08/20/17 Azithromycin [Zithromax] 1,200 mg PO QWK #8 tab 08/20/17 Efavirenz/Emtricitabine/Teno 1 tab PO DAILY #30 tab 09/03/17 [Atripla 600 MG-200 MG-300 MG] Ferrous Sulfate 325 mg PO TID #90 tablet 09/07/17 Mag&Al/Simet/Diphen/Lido [First 30 ml MM PRN PRN #1 kit 09/07/17 Magic Mouthwash] - Allergies Allergies/Adverse Reactions: Allergies Allergy/AdvReac Type Severity Reaction Status Date / Time No Known Allergies Allergy Verified 09/03/17 15:09 Review of Systems ROS Statement: Except As Marked, All Systems Reviewed And Found Negative <Regino Sheppard - Last Filed: 09/07/17 06:47> ROS Statement: Except As Marked, All Systems Reviewed And Found Negative <Harmeet Mcnamara - Last Filed: 09/07/17 22:06> Physical Exam - Physical Exam Appears: Positive for: Non-toxic, No Acute Distress Head Exam: Positive for: ATRAUMATIC, NORMAL INSPECTION, NORMOCEPHALIC Skin: Positive for: Warm, Dry, Pallor. Negative for: Rash Eye Exam: Positive for: EOMI, PERRL, Other (subconjuctival pallor ). Negative for: Conjunctival injection, Scleral icterus ENT: Positive for: Other (several shallow ulcerations along hard palate, soft palate and by superior molars. No thrush.). Negative for: Tonsillar Swelling Neck: Positive for: Normal, Painless ROM Cardiovascular/Chest: Positive for: Regular Rate, Rhythm. Negative for: Chest Non Tender, JVD Respiratory: Positive for: Normal Breath Sounds. Negative for: Decreased Breath Sounds, Accessory Muscle Use, Crackles, Rales, Rhonchi, Stridor, Wheezing Pulses-Radial (L): 2+ Pulses-Radial (R): 2+ Lymphatic: Negative for: Adenopathy Neurologic/Psych: Positive for: Alert, ship's surveyor II-XII, Oriented. Negative for: Motor/Sensory Deficits <Regino Sheppard - Last Filed: 09/07/17 06:47> - ECG O2 Sat by Pulse Oximetry: 100 - Progress ED Course And Treament: HSV oral lesions, CMV, apthous lesions Magic Mouthwash Ferrous sulfate 325mg <Regino Sheppard - Last Filed: 09/07/17 06:47> Disposition - Patient ED Disposition Is Patient to be Admitted: No - Disposition Disposition: Routine/Home Disposition Time: 06:48 <Regino Sheppard - Last Filed: 09/07/17 06:47> <Harmeet Mcnamara - Last Filed: 09/07/17 22:06> - Clinical Impression Clinical Impression: Oral herpes, AIDS, Anemia - Disposition Referrals: Marcell Gregorio MD [Staff Provider] - Condition: GOOD Additional Instructions: take medication as prescribed continue with your current prescription follow up with Karlos Lee in 2-3 days Prescriptions: Ferrous Sulfate 325 mg PO TID #90 tablet Mag&Al/Simet/Diphen/Lido [First Magic Mouthwash] 30 ml MM PRN PRN #1 kit PRN Reason: Pain, Mild (1-3) Instructions: HIV/AIDS, Cold Sores (Oral Herpes) Forms: [facility] (Welsh)
[2017-09-07] MEDS ORDERED: Mag&Al/Simet/Diphen/Lido 237 ML KIT PO ONE (06:21)
== END 2017-09-07 07:26 | disposition home or self-care (01) ==
LOC: H.ER 05:02
DX: B00.2 Herpesviral gingivostomatitis and pharyngotonsillitis (principal); B20 Human immunodeficiency virus [HIV] disease; D64.9 Anemia, unspecified

== ENCOUNTER 2017-09-15 09:41 | Emergency (ER) | payer MEDICAID ==
[2017-09-15 09:41] VITALS: BMI 21.4
[2017-09-15 09:52] VITALS: RESP 19; O2SAT 100
--- NOTE | 2017-09-15 12:04 | RAD ---
PROCEDURE: Pelvis right hip HISTORY: right hip pain s/p fall COMPARISON: None TECHNIQUE: Standard protocol for this study/examination. FINDINGS: There are no osseous abnormalities to suggest fracture. The pelvic ring is intact. Preserved femoral-acetabular relationship. Negative study for protrusio, subluxation or dislocation. Degenerative changes: Mild, of both hips right slightly greater than left. IMPRESSION: No acute findings related to/accounting for the clinical presentation.
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
[2017-09-15 12:45] VITALS: BP 128/78; PULSE 78; TEMP 98
--- NOTE | 2017-09-15 13:13 | RAD ---
PROCEDURE: Radiographs of the Right Shoulder HISTORY: right shoulder pain s/p fall COMPARISON: No prior. FINDINGS: BONES: Normal. No fracture. JOINTS: Normal. Glenohumeral and acromioclavicular joints preserved. No osteoarthritis. SOFT TISSUES: Normal. OTHER FINDINGS: None. IMPRESSION: No acute findings related to/accounting for the clinical presentation.
== END 2017-09-15 12:46 | disposition home or self-care (01) ==
LOC: H.ER 09:41
DX: S49.91XA Unspecified injury of right shoulder and upper arm, initial encounter (principal); V87.8XXA Person injured in other specified noncollision transport accidents involving motor vehicle (traffic), initial encounter

== ENCOUNTER 2017-09-25 08:18 | Inpatient (IN) | payer MEDICAID, OTHER ==
[2017-09-25 08:26] VITALS: BMI 20.8
[2017-09-25 09:44] LABS: BASO % 0.7 % (0.0-2.0); EOS % 0.1 % (0.0-4.0); LYMPH # 0.1 K/uL (1.0-4.3); LYMPH % 6.8 % (20.0-40.0); MEAN CORPUSCULAR HEMOGLOBIN 27.8 pg (27.0-31.0); MEAN CORPUSCULAR HGB CONC 32.8 g/dL (33.0-37.0); MEAN PLATELET VOLUME 8.4 fl (7.2-11.7); MONO # 0.1 K/uL (0.0-0.8); MONO % 5.4 % (0.0-10.0); NEUT # 1.5 K/uL (1.8-7.0); NRBC % 0.5 % (0.0-0.0); PLATELET COUNT 216 K/uL (130-400); RBC 2.08 Mil/uL (4.40-5.90); RED CELL DISTRIBUTION WIDTH 19.5 % (11.5-14.5)
[2017-09-25 09:51] LABS: INR 1.1 (0.9-1.2); PARTIAL THROMBOPLASTIN TIME 27.9 Seconds (25.6-37.1); PROTHROMBIN TIME 12.2 Seconds (9.8-13.1)
[2017-09-25 09:53] LABS: ALB/GLOB RATIO 0.6 (1.0-2.1); ALBUMIN 2.9 g/dL (3.5-5.0); ALT/SGPT 42 U/L (21-72); AST/SGOT 50 U/L (17-59); BLOOD UREA NITROGEN 16 mg/dl (9-20); CALCIUM 8.2 mg/dL (8.4-10.2); GFR AFRICAN-AMERICAN > 60; GFR NON-AFRICAN AMERICAN > 60
[2017-09-25 09:56] LABS: HEMOGLOBIN 5.8 g/dL (12.0-18.0); WHITE BLOOD COUNT 1.7 K/uL (4.8-10.8)
[2017-09-25 09:57] LABS: MEAN CELL VOLUME 84.7 fl (80.0-94.0)
--- NOTE | 2017-09-25 10:33 | ED PDOC ---
HPI: General Adult Time Seen by Provider: 09/25/17 08:23 Chief Complaint (Nursing): Weakness/Neurological Deficit Chief Complaint (Provider): Anemia History Per: Patient History/Exam Limitations: no limitations Additional Complaint(s): Pt presents to ED with c/o "my anemia" associated with generalized weakness. Pt with h/o anemia and AIDS, no h/o transfusions. Unknown CD4 count. Denies CP , SOB, active bleeding. Past Medical History Reviewed: Nursing Documentation, Vital Signs Vital Signs: Last Vital Signs Temp 98.4 F 09/25/17 12:57 Pulse 92 H 09/25/17 12:57 Resp 18 09/25/17 12:57 BP 120/65 09/25/17 12:57 Pulse Ox 100 09/25/17 13:01 - Medical History PMH: Anemia, HIV (dx 8 years ago), Pneumonia Other PMH: AIDS - Family History Family History: States: Unknown Family Hx - Social History Current smoker - smoking cessation education provided: No - Home Medications Home Medications: Ambulatory Orders Medication Instructions Recorded Atovaquone [Mepron] 1,500 mg PO DAILY #60 packet 08/20/17 Azithromycin [Zithromax] 1,200 mg PO QWK #8 tab 08/20/17 Efavirenz/Emtricitabine/Teno 1 tab PO DAILY #30 tab 09/03/17 [Atripla 600 MG-200 MG-300 MG] Ferrous Sulfate 325 mg PO TID #90 tablet 09/07/17 Mag&Al/Simet/Diphen/Lido [First 30 ml MM PRN PRN #1 kit 09/07/17 Magic Mouthwash] - Allergies Allergies/Adverse Reactions: Allergies Allergy/AdvReac Type Severity Reaction Status Date / Time No Known Allergies Allergy Verified 09/03/17 15:09 Review of Systems Constitutional: Positive for: Weakness, Malaise. Negative for: Fever, Chills Cardiovascular: Negative for: Chest Pain, Palpitations Respiratory: Negative for: Cough, Shortness of Breath Gastrointestinal: Negative for: Nausea, Vomiting, Abdominal Pain, Diarrhea Genitourinary Male: Negative for: Dysuria, Hematuria Skin: Negative for: Rash, Lesions Neurological: Positive for: Dizziness. Negative for: Numbness, Incoordination, Change in Speech, Confusion, Seizures, Altered Mental Status, Headache Physical Exam - Reviewed Nursing Documentation Reviewed: Yes Vital Signs Reviewed: Yes - Physical Exam Appears: Positive for: Well, No Acute Distress Head Exam: Positive for: NORMAL INSPECTION Skin: Positive for: Warm, Dry, Pallor Eye Exam: Positive for: Normal appearance, EOMI, PERRL, Other (Pale conjunctivae ) Cardiovascular/Chest: Positive for: Regular Rate, Rhythm Respiratory: Positive for: Normal Breath Sounds Gastrointestinal/Abdominal: Positive for: Normal Exam, Bowel Sounds, Soft. Negative for: Tenderness Extremity: Positive for: Normal ROM Neurologic/Psych: Positive for: Alert, peanut separator II-XII, Oriented. Negative for: Motor/Sensory Deficits - Laboratory Results Result Diagrams: 09/25/17 09:20 09/25/17 09:20 - ECG Interpretation Of ECG: NSR @ 92, no ST-T changes. O2 Sat by Pulse Oximetry: 100 Pulse Ox Interpretation: Normal Medical Decision Making Medical Decision Makin yo male with h/o anemia presents with generalized weakness. - labs - EKG - CXR Time: 1135 Chest X-Ray FINDINGS: LUNGS: Somewhat diminished inspiratory volume noted. Borderline patchy infiltrate may be developing the medial right base versus crowding of the bronchovascular markings there. Carotid left bronchovascular markings are favored over potential patchy infiltrate left base. PLEURA: No significant pleural effusion identified, no pneumothorax apparent. CARDIOVASCULAR: Normal. OSSEOUS STRUCTURES: No significant abnormalities. VISUALIZED UPPER ABDOMEN: Normal. OTHER FINDINGS: None. IMPRESSION: Diminished history volume is felt to be causing crowding of bronchovascular markings at both lung bases though is difficult to exclude a potential early infiltrate at the medial right base. Remainder the examination is stable and unremarkable. Disposition - Clinical Impression Clinical Impression: Symptomatic anemia - Patient ED Disposition Is Patient to be Admitted: Yes - Disposition Disposition Time: 10:26 Condition: STABLE - Pt Status Changed To: Hospital Disposition Of: Inpatient - Admit Certification Admit to Inpatient:: After my assessment, the patient will require hospitalization for at least two midnights. This is because of the severity of symptoms shown, intensity of services needed, and/or the medical risk in this patient being treated as an outpatient. - POA Present On Arrival: None
[2017-09-25 11:10] LABS: ANISOCYTOSIS MODERATE; BANDS 1 % (0-2); LYMPHOCYTE 8 % (20-50); MONOCYTE 5 % (0-10); NEUTROPHIL 86 % (42-75); PLATELET ESTIMATE NORMAL (NORMAL); POIKILOCYTOSIS SLIGHT; TOTAL CELLS COUNTED 100
[2017-09-25 11:11] LABS: HYPOCHROMIC MARKED; OVALOCYTES SLIGHT; SCHISTOCYTES SLIGHT
[2017-09-25 11:12] LABS: LARGE PLATELETS PRESENT; ROULEAUX FORMATION SLIGHT; TEARDROP CELLS SLIGHT
--- NOTE | 2017-09-25 11:37 | RAD ---
HISTORY: Anemia COMPARISON: Chest radiographs 08/18/2017. FINDINGS: LUNGS: Somewhat diminished inspiratory volume noted. Borderline patchy infiltrate may be developing the medial right base versus crowding of the bronchovascular markings there. Carotid left bronchovascular markings are favored over potential patchy infiltrate left base. PLEURA: No significant pleural effusion identified, no pneumothorax apparent. CARDIOVASCULAR: Normal. OSSEOUS STRUCTURES: No significant abnormalities. VISUALIZED UPPER ABDOMEN: Normal. OTHER FINDINGS: None. IMPRESSION: Diminished history volume is felt to be causing crowding of bronchovascular markings at both lung bases though is difficult to exclude a potential early infiltrate at the medial right base. Remainder the examination is stable and unremarkable.
[2017-09-25] MEDS ORDERED: Mag&Al/Simet/Diphen/Lido 237 ML KIT MM PRN ×2 (13:47→20:30)
[2017-09-26 07:09] LABS: HEMOGLOBIN 7.7 g/dL (12.0-18.0); MEAN CORPUSCULAR HEMOGLOBIN 27.9 pg (27.0-31.0); MEAN CORPUSCULAR HGB CONC 32.9 g/dL (33.0-37.0); RBC 2.76 Mil/uL (4.40-5.90); RED CELL DISTRIBUTION WIDTH 17.2 % (11.5-14.5); WHITE BLOOD COUNT 2.6 K/uL (4.8-10.8)
[2017-09-26 08:26] LABS: ALB/GLOB RATIO 0.6 (1.0-2.1); ALBUMIN 2.9 g/dL (3.5-5.0); ALT/SGPT 45 U/L (21-72); AST/SGOT 51 U/L (17-59); BILIRUBIN,DIRECT 0.2 mg/ml (0.0-0.4); BLOOD UREA NITROGEN 12 mg/dl (9-20); CALCIUM 8.1 mg/dL (8.4-10.2); GFR AFRICAN-AMERICAN > 60; GFR NON-AFRICAN AMERICAN > 60
[2017-09-26] MEDS ORDERED: Patient's Own Med (Efavirenz/Emtricitabine/Teno [Atripla 600 Mg-200 Mg-300 Mg] 1 TAB) PO SCH (09:00)
[2017-09-26] MEDS: EMTRICITABINE 200 MG CAP PO SCH (09:06)
[2017-09-26] MEDS: Atovaquone 750 mg/5 ml Susp UD PO SCH (09:07)
--- NOTE | 2017-09-26 09:32 | CP.PCM.HP ---
History of Present Illness - History of Present Illness History of Present Illness: Cc: Weakness A 52 year old male with history of HIV AIDS on HAART medications who presented with fatigue, tiredness, limited ambulation due to severe fatigue. In the ER, the patient was found to have a hemoglobin of 5.8 and also found to be dehydrated. The patient also had abnormalities in his liver function profile. Patient denies chest pain, sob, fever, chills, nausea or vomiting. The patient was admitted for severe symptomatic anemia. Transfusion of prbc was started in the ED. Present on Admission - Present on Admission Any Indicators Present on Admission: No Review of Systems - Review of Systems All systems: reviewed and no additional remarkable complaints except (as stated) - Constitutional Constitutional: Fatigue, Weakness. absent: Chills, Fever - Cardiovascular Cardiovascular: absent: Chest Pain, Dyspnea - Respiratory Respiratory: absent: Cough, Dyspnea Past Patient History - Past Medical History & Family History Past Medical History?: Yes - Past Social History Smoking Status: Never Smoked - CARDIAC Hx Cardiac Disorders: No - PULMONARY Hx Respiratory Disorders: Yes Hx Pneumonia: Yes - NEUROLOGICAL Hx Neurological Disorder: No - HEENT Hx HEENT Problems: No - RENAL Hx Chronic Kidney Disease: No - ENDOCRINE/METABOLIC Hx Endocrine Disorders: No - HEMATOLOGICAL/ONCOLOGICAL Hx Blood Disorders: Yes Hx Anemia: Yes Hx Human Immunodeficiency Virus (HIV): Yes (dx 8 years ago) - INTEGUMENTARY Hx Dermatological Problems: No - MUSCULOSKELETAL/RHEUMATOLOGICAL Hx Musculoskeletal Disorders: No Hx Falls: No - GASTROINTESTINAL Hx Gastrointestinal Disorders: Yes Hx Hemorrhoids: Yes - GENITOURINARY/GYNECOLOGICAL Hx Genitourinary Disorders: No - PSYCHIATRIC Hx Psychophysiologic Disorder: No Hx Substance Use: No - SURGICAL HISTORY Hx Surgeries: No - ANESTHESIA Hx Anesthesia: No Hx Anesthesia Reactions: No Hx Malignant Hyperthermia: No Has any member of the family had a problem w/ anesthesia?: No Meds Allergies/Adverse Reactions: Allergies Allergy/AdvReac Type Severity Reaction Status Date / Time No Known Allergies Allergy Verified 09/03/17 15:09 Physical Exam - Constitutional Appears: No Acute Distress (Appears weak) - Head Exam Head Exam: ATRAUMATIC, NORMOCEPHALIC - Eye Exam Eye Exam: EOMI, Normal appearance, PERRL Pupil Exam: NORMAL ACCOMODATION - ENT Exam ENT Exam: Mucous Membranes Moist - Neck Exam Neck exam: Positive for: Normal Inspection - Respiratory Exam Respiratory Exam: Clear to Auscultation Bilateral, NORMAL BREATHING PATTERN - Cardiovascular Exam Cardiovascular Exam: REGULAR RHYTHM, +S1, +S2 - GI/Abdominal Exam GI & Abdominal Exam: Normal Bowel Sounds, Soft - Rectal Exam Rectal Exam: Deferred - Extremities Exam Extremities exam: Positive for: full ROM, normal inspection - Back Exam Back exam: NORMAL INSPECTION - Psychiatric Exam Psychiatric exam: Normal Affect, Normal Mood - Skin Skin Exam: Normal Color, Warm Results - Vital Signs Recent Vital Signs: Last Vital Signs Temp 99.3 F 09/26/17 08:12 Pulse 74 09/26/17 08:12 Resp 20 09/26/17 08:12 BP 90/56 L 09/26/17 08:12 Pulse Ox 97 09/26/17 08:12 - Labs Result Diagrams: 09/26/17 21:02 09/26/17 07:15 Labs: Laboratory Results - last 24 hr 09/25/17 09/25/17 09/25/17 09:20 09:20 09:20 WBC 1.7 L* D RBC 2.08 L Hgb 5.8 L* D Hct 17.6 L MCV 84.7 D MCH 27.8 MCHC 32.8 L RDW 19.5 H Plt Count 216 MPV 8.4 Neut % (Auto) 87.0 H Lymph % (Auto) 6.8 L Will % (Auto) 5.4 Eos % (Auto) 0.1 Baso % (Auto) 0.7 Neut # (Auto) 1.5 L Lymph # (Auto) 0.1 L Will # (Auto) 0.1 Eos # (Auto) 0.0 Baso # (Auto) 0.0 Neutrophils % (Manual) 86 H Band Neutrophils % 1 Lymphocytes % (Manual) 8 L Monocytes % (Manual) 5 Platelet Estimate Normal Large Platelets Present Hypochromasia (manual) Marked Poikilocytosis (manual Slight Anisocytosis (manual) Moderate Tear Drop Cells Slight Ovalocytes Slight Rouleaux Slight Schistocytes Slight PT INR APTT Sodium 131 L Potassium 4.2 Chloride 96 L Carbon Dioxide 23 Anion Gap 16 BUN 16 Creatinine 0.6 L Est GFR ( Amer) > 60 Est GFR (Non-Af Amer) > 60 Random Glucose 110 Calcium 8.2 L Total Bilirubin 0.2 Direct Bilirubin AST 50 ALT 42 Alkaline Phosphatase 206 H D Total Protein 7.6 Albumin 2.9 L Globulin 4.6 H Albumin/Globulin Ratio 0.6 L Blood Type O POSITIVE Antibody Screen Negative Crossmatch See Detail BBK History Checked Patient has bt 09/25/17 09/26/17 09/26/17 09:20 05:25 07:15 WBC 2.6 L D RBC 2.76 L Hgb 7.7 L Hct 23.5 L MCV 85.0 MCH 27.9 MCHC 32.9 L RDW 17.2 H Plt Count 206 MPV Neut % (Auto) Lymph % (Auto) Will % (Auto) Eos % (Auto) Baso % (Auto) Neut # (Auto) Lymph # (Auto) Will # (Auto) Eos # (Auto) Baso # (Auto) Neutrophils % (Manual) Band Neutrophils % Lymphocytes % (Manual) Monocytes % (Manual) Platelet Estimate Large Platelets Hypochromasia (manual) Poikilocytosis (manual Anisocytosis (manual) Tear Drop Cells Ovalocytes Rouleaux Schistocytes PT 12.2 INR 1.1 APTT 27.9 Sodium 132 Potassium 4.1 Chloride 100 Carbon Dioxide 22 Anion Gap 14 BUN 12 Creatinine 0.8 Est GFR ( Amer) > 60 Est GFR (Non-Af Amer) > 60 Random Glucose 86 Calcium 8.1 L Total Bilirubin 0.2 Direct Bilirubin 0.2 AST 51 ALT 45 Alkaline Phosphatase 204 H Total Protein 7.5 Albumin 2.9 L Globulin 4.6 H Albumin/Globulin Ratio 0.6 L Blood Type Antibody Screen Crossmatch BBK History Checked - Imaging and Cardiology Chest x-ray Additional comment: HISTORY: Anemia COMPARISON: Chest radiographs 08/18/2017. FINDINGS: LUNGS: Somewhat diminished inspiratory volume noted. Borderline patchy infiltrate may be developing the medial right base versus crowding of the bronchovascular markings there. Carotid left bronchovascular markings are favored over potential patchy infiltrate left base. PLEURA: No significant pleural effusion identified, no pneumothorax apparent. CARDIOVASCULAR: Normal. OSSEOUS STRUCTURES: No significant abnormalities. VISUALIZED UPPER ABDOMEN: Normal. OTHER FINDINGS: None. IMPRESSION: Diminished history volume is felt to be causing crowding of bronchovascular markings at both lung bases though is difficult to exclude a potential early infiltrate at the medial right base. Remainder the examination is stable and unremarkable. Assessment & Plan (1) Symptomatic anemia Assessment and Plan: Transfusion of 2 units prbc ordered Anemia work up Iron & TIBC, ferritin, retic count, FOB Folate, Vit. B12 Repeat cbc 4 hours post transfusion Status: Acute Priority: High (2) HIV disease Assessment and Plan: HIV/AIDS Resume home mediations Status: Acute
[2017-09-26 09:41] LABS: IRON 22 ug/dL (49-181)
[2017-09-26 09:51] LABS: % IRON SATURATION 8 % (20-55); TOTAL IRON BINDING CAPACITY 268 ug/dL (250-450)
--- NOTE | 2017-09-26 11:32 | CARD ---
APPROVED REPORT EKG Measurement Heart [id number] <Conclusion> Normal sinus rhythm Normal ECG
[2017-09-26 21:18] LABS: HEMOGLOBIN 8.2 g/dL (12.0-18.0); MEAN CELL VOLUME 83.2 fl (80.0-94.0); MEAN CORPUSCULAR HGB CONC 33.7 g/dL (33.0-37.0); RBC 2.94 Mil/uL (4.40-5.90); RED CELL DISTRIBUTION WIDTH 17.7 % (11.5-14.5)
[2017-09-27 00:19] VITALS: RESP 20; O2SAT 99
[2017-09-27 08:16] VITALS: BP 101/64; PULSE 82; TEMP 99.1
[2017-09-27] MEDS: EMTRICITABINE 200 MG CAP PO SCH (08:56)
[2017-09-27] MEDS: Atovaquone 750 mg/5 ml Susp UD PO SCH (08:56)
--- NOTE | 2017-09-27 18:47 | CP.PCM.DIS ---
Provider - Provider Date of Admission: 09/25/17 10:26 Attending physician: Elliot Oliveira MD Time Spent in preparation of Discharge (in minutes): 25 Diagnosis - Discharge Diagnosis (1) Anemia Status: Acute (2) HIV disease Status: Chronic (3) Vitamin B12 deficiency anemia Status: Acute Hospital Course - Lab Results Lab Results: Most Recent Lab Values WBC 3.0 K/uL (4.8-10.8) L 09/26/17 21:02 RBC 2.94 Mil/uL (4.40-5.90) L 09/26/17 21:02 Hgb 8.2 g/dL (12.0-18.0) L 09/26/17 21:02 Hct 24.5 % (35.0-51.0) L 09/26/17 21:02 MCV 83.2 fl (80.0-94.0) 09/26/17 21:02 MCH 28.0 pg (27.0-31.0) 09/26/17 21:02 MCHC 33.7 g/dL (33.0-37.0) 09/26/17 21:02 RDW 17.7 % (11.5-14.5) H 09/26/17 21:02 Plt Count 200 K/uL (130-400) 09/26/17 21:02 MPV 8.4 fl (7.2-11.7) 09/25/17 09:20 Neut % (Auto) 87.0 % (50.0-75.0) H 09/25/17 09:20 Lymph % (Auto) 6.8 % (20.0-40.0) L 09/25/17 09:20 [place] % (Auto) 5.4 % (0.0-10.0) 09/25/17 09:20 Eos % (Auto) 0.1 % (0.0-4.0) 09/25/17 09:20 Baso % (Auto) 0.7 % (0.0-2.0) 09/25/17 09:20 Neut # (Auto) 1.5 K/uL (1.8-7.0) L 09/25/17 09:20 Lymph # (Auto) 0.1 K/uL (1.0-4.3) L 09/25/17 09:20 [place] # (Auto) 0.1 K/uL (0.0-0.8) 09/25/17 09:20 Eos # (Auto) 0.0 K/uL (0.0-0.7) 09/25/17 09:20 Baso # (Auto) 0.0 K/uL (0.0-0.2) 09/25/17 09:20 Neutrophils % (Manual) 86 % (42-75) H 09/25/17 09:20 Band Neutrophils % 1 % (0-2) 09/25/17 09:20 Lymphocytes % (Manual) 8 % (20-50) L 09/25/17 09:20 Monocytes % (Manual) 5 % (0-10) 09/25/17 09:20 Platelet Estimate Normal (NORMAL) 09/25/17 09:20 Large Platelets Present 09/25/17 09:20 Hypochromasia (manual) Marked 09/25/17 09:20 Poikilocytosis (manual Slight 09/25/17 09:20 Anisocytosis (manual) Moderate 09/25/17 09:20 Tear Drop Cells Slight 09/25/17 09:20 Ovalocytes Slight 09/25/17 09:20 Rouleaux Slight 09/25/17 09:20 Schistocytes Slight 09/25/17 09:20 Retic Count 1.7 % (0.5-1.5) H 09/26/17 09:00 PT 12.2 Seconds (9.8-13.1) 09/25/17 09:20 INR 1.1 (0.9-1.2) 09/25/17 09:20 APTT 27.9 Seconds (25.6-37.1) 09/25/17 09:20 Sodium 132 mmol/l (132-148) 09/26/17 07:15 Potassium 4.1 MMOL/L (3.6-5.0) 09/26/17 07:15 Chloride 100 mmol/L (98-107) 09/26/17 07:15 Carbon Dioxide 22 mmol/L (22-30) 09/26/17 07:15 Anion Gap 14 (10-20) 09/26/17 07:15 BUN 12 mg/dl (9-20) 09/26/17 07:15 Creatinine 0.8 mg/dl (0.8-1.5) 09/26/17 07:15 Est GFR ( Amer) > 60 09/26/17 07:15 Est GFR (Non-Af Amer) > 60 09/26/17 07:15 Random Glucose 86 mg/dL (75-110) 09/26/17 07:15 Calcium 8.1 mg/dL (8.4-10.2) L 09/26/17 07:15 Iron 22 ug/dL (49-181) L 09/26/17 09:00 TIBC 268 ug/dL (250-450) 09/26/17 09:00 % Saturation 8 % (20-55) L 09/26/17 09:00 Ferritin 915.0 ng/Ml (17.9-464) H 09/26/17 09:00 Total Bilirubin 0.2 mg/dl (0.2-1.3) 09/26/17 07:15 Direct Bilirubin 0.2 mg/ml (0.0-0.4) 09/26/17 07:15 AST 51 U/L (17-59) 09/26/17 07:15 ALT 45 U/L (21-72) 09/26/17 07:15 Alkaline Phosphatase 204 U/L (38-126) H 09/26/17 07:15 Total Protein 7.5 G/DL (6.3-8.2) 09/26/17 07:15 Albumin 2.9 g/dL (3.5-5.0) L 09/26/17 07:15 Globulin 4.6 gm/dL (2.2-3.9) H 09/26/17 07:15 Albumin/Globulin Ratio 0.6 (1.0-2.1) L 09/26/17 07:15 Vitamin B12 171 pg/mL (239-931) L 09/26/17 09:00 Stool Occult Blood Negative (NEGATIVE) 09/26/17 20:11 Blood Type O POSITIVE 09/25/17 09:20 Antibody Screen Negative 09/25/17 09:20 Crossmatch See Detail 09/25/17 09:20 BBK History Checked Patient has bt 09/25/17 09:20 - Hospital Course Hospital Course: A 52 year old male with hx of HIV AIDS on HAART medications admitted for severe symptomatic anemia. The patient received a total of 3 units prbc and hemoglobin improved to 8.2. He was also found to have Vitamin B12 Deficiency, and was given 2 days of Vitamin B12, and advised to get More Treatment to prevent further complications succh as Neurpsychiatric disorder but patient refused to saty, and signed out AMA. The patient felt better and was discharged home to resume same home meds and f/ u with PCP. Discharge Exam - Head Exam Head Exam: ATRAUMATIC, NORMAL INSPECTION - Respiratory Exam Respiratory Exam: Clear to PA & Lateral, NORMAL BREATHING PATTERN - Cardiovascular Exam Cardiovascular Exam: REGULAR RHYTHM, +S1, +S2 - Neurological Exam Neurological exam: Alert, Oriented x3 - Psychiatric Exam Psychiatric exam: Normal Affect - Skin Skin Exam: Normal Color, Warm Discharge Plan - Follow Up Plan Condition: STABLE Disposition: AGAINST MEDICAL ADVICE Instructions: Vitamin B12 Deficiency and Folic Acid Deficiency Additional Instructions: To take Vit B 12 daily X 5 days, then weekly x 1 month,, then monthly- As per outpatient MD Recomendations
[2017-09-28 12:36] LABS: FOLATE 14.2 ng/mL
== END 2017-09-27 12:01 | disposition left against medical advice (07) | DRG 977 ==
LOC: H.ER 08:18 → H.ERHOLD 10:26 → H.MEDSURG1 12:49
PROVIDERS: ADMIT Internal Medicine; ATTEND Internal Medicine
PROC: 30233N1 Transfusion of Nonautologous Red Blood Cells into Peripheral Vein, Percutaneous Approach (ICD-10-PCS; principal; 2017-09-25)
DX: D51.9 Vitamin B12 deficiency anemia, unspecified (principal); B20 Human immunodeficiency virus [HIV] disease; E86.0 Dehydration; Z87.01 Personal history of pneumonia (recurrent); K64.9 Unspecified hemorrhoids; Z79.899 Other long term (current) drug therapy

== ENCOUNTER 2017-10-05 04:52 | Inpatient (IN) | payer OTHER, SELFPAY ==
[2017-10-05 04:52] VITALS: BMI 20.8
--- NOTE | 2017-10-05 05:54 | ED PDOC ---
HPI: Head Injury Time Seen by Provider: 10/05/17 04:56 Chief Complaint (Nursing): Dizziness/Lightheaded Chief Complaint (Provider): Head Injury History Per: Patient History/Exam Limitations: no limitations Injury Occurred (Timing): Days Ago: (x2) Onset/Duration Of Symptoms: Days (x2) Patient States: Struck With Object Loss Of Consciousness: No Additional Complaint(s): 52 year old male presents to ED with complaints of dizziness x2 days status post striking his head on a piece of metal and has a past medical history of HIV /AIDS, vitamin B12 deficiency, and anemia. (-) vomiting, pain, weakness, numbness, or visual changes. PCP: Marcell Gregorio Past Medical History Reviewed: Historical Data, Nursing Documentation, Vital Signs Vital Signs: Last Vital Signs Temp 98.1 F 10/05/17 05:15 Pulse 87 10/05/17 05:15 Resp 18 10/05/17 05:15 BP 111/76 10/05/17 05:15 Pulse Ox 99 10/05/17 05:15 - Medical History PMH: Anemia, HIV (dx 8 years ago), Pneumonia Denies: Chronic Kidney Disease - Surgical History Surgical History: No Surg Hx - Family History Family History: States: Unknown Family Hx - Social History Current smoker - smoking cessation education provided: No Alcohol: None Drugs: Denies - Home Medications Home Medications: Ambulatory Orders Medication Instructions Recorded Atovaquone [Mepron] 1,500 mg PO DAILY #60 packet 08/20/17 Azithromycin [Zithromax] 1,200 mg PO QWK #8 tab 08/20/17 Efavirenz/Emtricitabine/Teno 1 tab PO DAILY #30 tab 09/03/17 [Atripla 600 MG-200 MG-300 MG] Ferrous Sulfate 325 mg PO TID #90 tablet 09/07/17 Mag&Al/Simet/Diphen/Lido [First 30 ml MM PRN PRN #1 kit 09/07/17 Magic Mouthwash] - Allergies Allergies/Adverse Reactions: Allergies Allergy/AdvReac Type Severity Reaction Status Date / Time No Known Allergies Allergy Verified 09/03/17 15:09 Review of Systems ROS Statement: Except As Marked, All Systems Reviewed And Found Negative Eyes: Negative for: Vision Change Gastrointestinal: Negative for: Vomiting Musculoskeletal: Negative for: Other ((-) head pain) Neurological: Positive for: Dizziness. Negative for: Weakness, Numbness Physical Exam - Reviewed Nursing Documentation Reviewed: Yes Vital Signs Reviewed: Yes - Physical Exam Appears: Positive for: Non-toxic, No Acute Distress (cachectic, temporal wasting ) Head Exam: Positive for: NORMOCEPHALIC. Negative for: ATRAUMATIC (small scab on ventral aspect of left part of head - no active bleeding, swelling, tenderness, or hematoma) Skin: Positive for: Normal Color, Warm, Dry Cardiovascular/Chest: Positive for: Regular Rate, Rhythm. Negative for: Murmur Respiratory: Positive for: Normal Breath Sounds. Negative for: Respiratory Distress Gastrointestinal/Abdominal: Positive for: Soft. Negative for: Tenderness Extremity: Positive for: Normal ROM. Negative for: Deformity Neurologic/Psych: Positive for: Alert, safety sealer II-XII (intact), Oriented, Cerebellar Tests (intact), Gait (stable). Negative for: Motor/Sensory Deficits - Laboratory Results Result Diagrams: 10/05/17 21:05 10/05/17 16:27 - ECG O2 Sat by Pulse Oximetry: 99 (RA) Pulse Ox Interpretation: Normal Medical Decision Making Medical Decision Makin Initial impression: dizziness r/o intracranial process Initial plan: * T&S * CT HEAD * Labs * PTT/PT 0639 CT FINDINGS: Brain: There is mild diffuse cerebral atrophy present, consistent with this patient's age. There is mild diffuse heterogeneity of the white matter attenuation, consistent with chronic white matter ischemic changes. No hemorrhage. Ventricles: The ventricular system demonstrates mild diffuse compensatory enlargement. Bones/joints: Unremarkable. No acute fracture. Soft tissues: Unremarkable. Sinuses: There is diffuse mucoperiosteal thickening and fluid in the right ethmoid sinuses, consistent with sinusitis. There is diffuse mucoperiosteal thickening in the right maxillary sinus, consistent with chronic sinusitis. Mastoid air cells: Unremarkable as visualized. No mastoid effusion. IMPRESSION: No evidence of an acute intracranial abnormality. Sinusitis. 0652 Labs show chronic anemia. Hemoglobin: 8.5 pt states he still feels slightly dizzy Patient will be admitted to family practice for symptomatic anemia. family resident aware pt consented, RN witnessed Scribe Attestation: Documented by Lovely Lawson acting as a scribe for Mackenzie Darby MD. Scribe Attestation: All medical record entries made by the Scribe were at my direction and personally dictated by me. I have reviewed the chart and agree that the record accurately reflects my personal performance of the history, physical exam, medical decision making, and the department course for this patient. I have also personally directed, reviewed, and agree with the discharge instructions and disposition. Disposition - Clinical Impression Clinical Impression: Chronic anemia, Human immunodeficiency virus (HIV) seropositivity - Patient ED Disposition Is Patient to be Admitted: Yes - Disposition Disposition Time: 07:00 Condition: STABLE - Pt Status Changed To: Hospital Disposition Of: Observation (OBS MED SURG)
[2017-10-05 06:08] LABS: BASO % 0.5 % (0.0-2.0); EOS % 0.1 % (0.0-4.0); HEMOGLOBIN 8.5 g/dL (12.0-18.0); LYMPH # 0.1 K/uL (1.0-4.3); LYMPH % 5.2 % (20.0-40.0); MEAN CELL VOLUME 84.3 fl (80.0-94.0); MEAN CORPUSCULAR HEMOGLOBIN 27.3 pg (27.0-31.0); MEAN CORPUSCULAR HGB CONC 32.4 g/dL (33.0-37.0); MEAN PLATELET VOLUME 8.2 fl (7.2-11.7); MONO # 0.1 K/uL (0.0-0.8); MONO % 5.5 % (0.0-10.0); NEUT # 1.9 K/uL (1.8-7.0); NEUT % 88.7 % (50.0-75.0); NRBC % 0.1 % (0.0-0.0); PLATELET COUNT 205 K/uL (130-400); RBC 3.13 Mil/uL (4.40-5.90); RED CELL DISTRIBUTION WIDTH 17.9 % (11.5-14.5); WHITE BLOOD COUNT 2.2 K/uL (4.8-10.8)
[2017-10-05 06:36] LABS: ALB/GLOB RATIO 0.7 (1.0-2.1); ALBUMIN 3.2 g/dL (3.5-5.0); ALT/SGPT 61 U/L (21-72); AST/SGOT 63 U/L (17-59); BLOOD UREA NITROGEN 18 mg/dl (9-20); CALCIUM 8.5 mg/dL (8.4-10.2); GFR AFRICAN-AMERICAN > 60; GFR NON-AFRICAN AMERICAN > 60
--- NOTE | 2017-10-05 06:39 | CT ---
EXAM: CT Head Without Intravenous Contrast CLINICAL HISTORY: 52 years old, male; Injury or trauma; Fall; Initial encounter; Blunt trauma (contusions or hematomas); Additional info: Headache TECHNIQUE: Axial computed tomography images of the head/brain without intravenous contrast. All CT scans at this facility use one or more dose reduction techniques, viz.: automated exposure control; ma/kV adjustment per patient size (including targeted exams where dose is matched to indication; i.e. head); or iterative reconstruction technique. Coronal and sagittal reformatted images were created and reviewed. COMPARISON: CT - HEAD W/WO CONTRAST 2017-08-18 14:35 FINDINGS: Brain: There is mild diffuse cerebral atrophy present, consistent with this patient's age. There is mild diffuse heterogeneity of the white matter attenuation, consistent with chronic white matter ischemic changes. No hemorrhage. Ventricles: The ventricular system demonstrates mild diffuse compensatory enlargement. Bones/joints: Unremarkable. No acute fracture. Soft tissues: Unremarkable. Sinuses: There is diffuse mucoperiosteal thickening and fluid in the right ethmoid sinuses, consistent with sinusitis. There is diffuse mucoperiosteal thickening in the right maxillary sinus, consistent with chronic sinusitis. Mastoid air cells: Unremarkable as visualized. No mastoid effusion. IMPRESSION: No evidence of an acute intracranial abnormality. Sinusitis.
[2017-10-05 08:05] LABS: INR 1.1 (0.9-1.2); PROTHROMBIN TIME 12.2 Seconds (9.8-13.1)
[2017-10-05 08:06] LABS: PARTIAL THROMBOPLASTIN TIME 28.5 Seconds (25.6-37.1)
[2017-10-05 09:18] LABS: ANISOCYTOSIS SLIGHT; LYMPHOCYTE 4 % (20-50); MONOCYTE 7 % (0-10); NEUTROPHIL 89 % (42-75); PLATELET ESTIMATE NORMAL (NORMAL); TOTAL CELLS COUNTED 100
[2017-10-05 09:20] LABS: LARGE PLATELETS PRESENT; OVALOCYTES SLIGHT; TEARDROP CELLS SLIGHT
--- NOTE | 2017-10-05 10:04 | CP.PCM.HP ---
History of Present Illness - History of Present Illness History of Present Illness: 52 yo M with pmhx of AIDS, (HIV dx in 2007), anemia presents to the ED with weakness and dizziness with rising from a prone position. He reports that symptoms began yesterday morning. He laid back down. Reports sensation of "loopy ". Pt reports fall 2/2 to dizziness, hitting his L temporal region. Denies loss of consciousness. Pt wanted to "rest it off" however, symtoms did not improve. While in ED, pt reports slight improvement. Denies CP/SOB/N/V. Reports regular bowel movements, last one being yesterday. Reports healthy appetite and tolerating PO diet. Denies recent decrease in nutritional intake. PMD: Dr. Georges PMHX: AIDS, anemia Surg: none Family hx: none Soc: lives alone, denies: smoking, alcohol, illicit drugs rx: Fe and Atripla NKDA ER course: Vitals: 97.6F, 102/50; 78 bpm; [address] head: No evidence of acute intracranial abnormality EKG: NSR, possible RBBB; pending official read CBC: 2.2>8.5/26.4<205 CMP: 129/4.7//95/21//18/0.6<89; serum osm: 277 PT/INR: 12.2/1.1 Type and crossmatch 1 unit for transfusion. Present on Admission - Present on Admission Any Indicators Present on Admission: No History of Uncontrolled Diabetes: No Review of Systems - Constitutional Constitutional: As Per HPI, Headache - Cardiovascular Cardiovascular: absent: Chest Pain - Respiratory Respiratory: absent: Dyspnea - Gastrointestinal Gastrointestinal: absent: Abdominal Pain, Fecal Incontinence, Nausea, Vomiting - Genitourinary Genitourinary: absent: Hematuria - Neurological Neurological: Dizziness, Weakness. absent: Abnormal Gait Past Patient History - Past Medical History & Family History Past Medical History?: Yes - Past Social History Smoking Status: Never Smoked - CARDIAC Hx Cardiac Disorders: No - PULMONARY Hx Respiratory Disorders: Yes Hx Pneumonia: Yes - NEUROLOGICAL Hx Neurological Disorder: No - HEENT Hx HEENT Problems: No - RENAL Hx Chronic Kidney Disease: No - ENDOCRINE/METABOLIC Hx Endocrine Disorders: No - HEMATOLOGICAL/ONCOLOGICAL Hx Blood Disorders: Yes Hx AIDS: Yes Hx Anemia: Yes Hx Blood Transfusions: Yes Hx Human Immunodeficiency Virus (HIV): Yes (dx 8 years ago) Other/Comment: Varicella. Sepsis - INTEGUMENTARY Hx Dermatological Problems: Yes Hx Cellulitis: Yes Other/Comment: Hx Toxic Epidermal Necrolysis - MUSCULOSKELETAL/RHEUMATOLOGICAL Hx Musculoskeletal Disorders: No Hx Falls: No - GASTROINTESTINAL Hx Gastrointestinal Disorders: Yes Hx Hemorrhoids: Yes - GENITOURINARY/GYNECOLOGICAL Hx Genitourinary Disorders: No - PSYCHIATRIC Hx Psychophysiologic Disorder: No Hx Substance Use: No - SURGICAL HISTORY Hx Surgeries: No - ANESTHESIA Hx Anesthesia: No Hx Anesthesia Reactions: No Hx Malignant Hyperthermia: No Meds Allergies/Adverse Reactions: Allergies Allergy/AdvReac Type Severity Reaction Status Date / Time No Known Allergies Allergy Verified 09/03/17 15:09 Physical Exam - Constitutional Appears: No Acute Distress - Head Exam Additional comments: L temporal healing lesion - Eye Exam Eye Exam: EOMI - Respiratory Exam Respiratory Exam: Clear to Auscultation Bilateral. absent: Wheezes - Cardiovascular Exam Cardiovascular Exam: +S1, +S2 - GI/Abdominal Exam GI & Abdominal Exam: Normal Bowel Sounds, Soft. absent: Tenderness - Neurological Exam Neurological exam: Alert, CN II-XII Intact, Oriented x3 - Psychiatric Exam Psychiatric exam: Normal Affect, Normal Mood Results - Vital Signs Recent Vital Signs: Last Vital Signs Temp 99.4 F 10/05/17 10:00 Pulse 93 H 10/05/17 10:00 Resp 17 10/05/17 10:00 BP 117/78 10/05/17 10:00 Pulse Ox 98 10/05/17 10:00 - Labs Result Diagrams: 10/05/17 05:50 10/05/17 05:50 Labs: Laboratory Results - last 24 hr 10/05/17 10/05/17 10/05/17 05:50 05:50 05:50 WBC 2.2 L RBC 3.13 L Hgb 8.5 L Hct 26.4 L MCV 84.3 MCH 27.3 MCHC 32.4 L RDW 17.9 H Plt Count 205 MPV 8.2 Neut % (Auto) 88.7 H Lymph % (Auto) 5.2 L [place] % (Auto) 5.5 Eos % (Auto) 0.1 Baso % (Auto) 0.5 Neut # (Auto) 1.9 Lymph # (Auto) 0.1 L [place] # (Auto) 0.1 Eos # (Auto) 0.0 Baso # (Auto) 0.0 Neutrophils % (Manual) 89 H Lymphocytes % (Manual) 4 L Monocytes % (Manual) 7 Platelet Estimate Normal Large Platelets Present Anisocytosis (manual) Slight Tear Drop Cells Slight Ovalocytes Slight PT INR APTT Sodium 129 L Potassium 4.7 Chloride 95 L Carbon Dioxide 21 L Anion Gap 18 BUN 18 Creatinine 0.6 L Est GFR ( Amer) > 60 Est GFR (Non-Af Amer) > 60 Random Glucose 89 Calcium 8.5 Total Bilirubin 0.3 AST 63 H ALT 61 Alkaline Phosphatase 262 H Total Protein 7.9 Albumin 3.2 L Globulin 4.7 H Albumin/Globulin Ratio 0.7 L Blood Type O POSITIVE Antibody Screen Negative Crossmatch See Detail BBK History Checked Patient has bt 10/05/17 07:40 WBC RBC Hgb Hct MCV MCH MCHC RDW Plt Count MPV Neut % (Auto) Lymph % (Auto) [place] % (Auto) Eos % (Auto) Baso % (Auto) Neut # (Auto) Lymph # (Auto) [place] # (Auto) Eos # (Auto) Baso # (Auto) Neutrophils % (Manual) Lymphocytes % (Manual) Monocytes % (Manual) Platelet Estimate Large Platelets Anisocytosis (manual) Tear Drop Cells Ovalocytes PT 12.2 INR 1.1 APTT 28.5 Sodium Potassium Chloride Carbon Dioxide Anion Gap BUN Creatinine Est GFR ( Amer) Est GFR (Non-Af Amer) Random Glucose Calcium Total Bilirubin AST ALT Alkaline Phosphatase Total Protein Albumin Globulin Albumin/Globulin Ratio Blood Type Antibody Screen Crossmatch BBK History Checked Assessment & Plan - Assessment and Plan (Free Text) Assessment: 52 yo M with pmhx of AIDS, (HIV dx in 2007), anemia presents to the ED with weakness and dizziness Symptomatic anemia -Pt has dizziness with weakness and hx of fall -CT head: No evidence of acute intracranial abnormality -EKG: NSR, possible RBBB; pending official read -Type and crossmatch 1 unit for transfusion -Fe deficiency -continue Fe -Neurocheck q4 s/p fall -f/u CBC in am -pt reports no hx of colonoscopy and declines. AIDS -Dr. Georges aware -09/2017: CD4: <20; VL: [id number] -Bactrim DS 1 PO daily, Azithromycin 600 mg twice weekly -RPR neg hyponatremia -129 -may be 2/2 Atripla -f/u urine osms: r/o SIADH; urine electrolytes; RAAS -monitor CMP Hypothyroid -TSH: 5.72 -f/u T4 Elevated AlkPhos -262 -f/u GGT Vitamin D deficiency -<12.8 -started Vitamin D, daily B12 -171 -s/p B12 injection x1 DIET -Regular -Jack Sp[facility] referral DVT prophylaxis -SCD -receiving 1 unit of transfusion; consider lovenox in future
[2017-10-05] MEDS: Tmp-Smz 800 mg-160 mg DS Tab PO SCH (14:13)
[2017-10-05] MEDS ORDERED: Mag&Al/Simet/Diphen/Lido 237 ML KIT MM PRN ×3 (16:27→19:45)
[2017-10-05 17:26] LABS: BLOOD UREA NITROGEN 18 mg/dl (9-20); CALCIUM 8.2 mg/dL (8.4-10.2); GFR AFRICAN-AMERICAN > 60; GFR NON-AFRICAN AMERICAN > 60
[2017-10-05 18:15] LABS: BASO % 0.9 % (0.0-2.0); EOS % 0.1 % (0.0-4.0); HEMOGLOBIN 8.8 g/dL (12.0-18.0); LYMPH # 0.1 K/uL (1.0-4.3); LYMPH % 5.6 % (20.0-40.0); MEAN CELL VOLUME 83.8 fl (80.0-94.0); MEAN CORPUSCULAR HEMOGLOBIN 27.5 pg (27.0-31.0); MEAN CORPUSCULAR HGB CONC 32.8 g/dL (33.0-37.0); MEAN PLATELET VOLUME 8.2 fl (7.2-11.7); MONO # 0.1 K/uL (0.0-0.8); MONO % 5.7 % (0.0-10.0); NEUT % 87.7 % (50.0-75.0); NRBC % 0.2 % (0.0-0.0); RBC 3.19 Mil/uL (4.40-5.90); RED CELL DISTRIBUTION WIDTH 17.8 % (11.5-14.5); WHITE BLOOD COUNT 2.3 K/uL (4.8-10.8)
--- NOTE | 2017-10-05 20:32 | CARD ---
APPROVED REPORT EKG Measurement Heart [id number] TN [id number] <Conclusion> Normal sinus rhythm Incomplete right bundle branch block Borderline ECG
[2017-10-05 21:30] LABS: HEMOGLOBIN 8.8 g/dL (12.0-18.0)
[2017-10-06 06:04] LABS: HEMOGLOBIN 9.8 g/dL (12.0-18.0); MEAN CELL VOLUME 84.2 fl (80.0-94.0); MEAN CORPUSCULAR HEMOGLOBIN 27.7 pg (27.0-31.0); MEAN CORPUSCULAR HGB CONC 32.9 g/dL (33.0-37.0); RBC 3.53 Mil/uL (4.40-5.90); RED CELL DISTRIBUTION WIDTH 17.8 % (11.5-14.5); WHITE BLOOD COUNT 2.5 K/uL (4.8-10.8)
[2017-10-06 06:13] LABS: ALB/GLOB RATIO 0.6 (1.0-2.1); ALBUMIN 3.1 g/dL (3.5-5.0); ALT/SGPT 52 U/L (21-72); AST/SGOT 54 U/L (17-59); BLOOD UREA NITROGEN 17 mg/dl (9-20); CALCIUM 8.5 mg/dL (8.4-10.2); GFR AFRICAN-AMERICAN > 60; GFR NON-AFRICAN AMERICAN > 60
[2017-10-06 06:30] LABS: T4 8.56 ug/dl (5.5-11.0)
--- NOTE | 2017-10-06 07:50 | CP.PCM.PN ---
Subjective - Date & Time of Evaluation Date of Evaluation: 10/06/17 Time of Evaluation: 07:30 - Subjective Subjective: 52 y/o M evaluated and examined by bedside. Pt reports feeling well, dizziness has improved. No complaints or acute events overnight. Pt tolerating PO. Pt denies headache, cough, SOB, chest pain, palpitations, abdominal pain, nausea or diarrhea. Objective - Vital Signs/Intake and Output Vital Signs (last 24 hours): Temp Pulse Resp BP Pulse Ox 98.7 F 78 19 114/75 99 10/05/17 23:46 10/05/17 23:46 10/05/17 23:46 10/05/17 23:46 10/06/17 01:53 - Medications Medications: Current Medications Acetaminophen (Tylenol 325mg Tab) 650 mg PO Q6 PRN PRN Reason: Fever >100.4 F Acetaminophen (Tylenol 325mg Tab) 650 mg PO Q6 PRN PRN Reason: Pain, Mild (1-3) Azithromycin (Zithromax) 600 mg PO QWK [facility] PRN Reason: Protocol Cholecalciferol (Vitamin D) 2,000 intlu PO DAILY [facility] Efavirenz (Sustiva) 600 mg PO DAILY MARY ANN Emtricitabine/Tenofovir (Truvada 200 Mg-300 Mg) 1 tab PO DAILY [facility] Ferrous Sulfate (Feosol) 325 mg PO TID [facility] Last Admin: 10/05/17 17:18 Dose: 325 mg Saliva Substitute (First Magic Mouthwash) 5 ml MM TID PRN PRN Reason: Pain, Mild (1-3) Trimethoprim/Sulfamethoxazole (Bactrim Ds Tab) 1 tab PO DAILY [facility] PRN Reason: Protocol Last Admin: 10/05/17 14:13 Dose: 1 tab - Labs Labs: 10/06/17 05:35 10/06/17 05:35 PT 12.2 Seconds (9.8-13.1) 10/05/17 07:40 INR 1.1 (0.9-1.2) 10/05/17 07:40 APTT 28.5 Seconds (25.6-37.1) 10/05/17 07:40 - Constitutional Appears: Non-toxic, No Acute Distress - Eye Exam Eye Exam: EOMI - ENT Exam ENT Exam: Mucous Membranes Dry - Neck Exam Neck Exam: Full ROM - Respiratory Exam Respiratory Exam: Clear to Ausculation Bilateral, NORMAL BREATHING PATTERN - Cardiovascular Exam Cardiovascular Exam: +S1, +S2 - GI/Abdominal Exam GI & Abdominal Exam: Soft, Normal Bowel Sounds. absent: Tenderness - Extremities Exam Extremities Exam: Full ROM - Neurological Exam Neurological Exam: Alert, Awake, Oriented x3 Assessment and Plan - Assessment and Plan (Free Text) Assessment: 52 yo M with a PMHx of AIDS, (HIV dx in 2007) and anemia presents to the ED with weakness and dizziness Plan: Symptomatic anemia -CT head: No evidence of acute intracranial abnormality -EKG: NSR, possible RBBB; pending official read -Type and crossmatch 1 unit for transfusion -Fe deficiency; continue Fe -Neurocheck q4 s/p fall -H/H 9.8/29.7 today 10/06 from 8.1 -Pt reports no hx of colonoscopy and declines. AIDS -09/2017: CD4: <20; VL: [id number] -D/C Bactrim DS 1 daily; initiate Atovaquone 1500mg susp daily. -Azithromycin 600 mg twice weekly -RPR neg -ID consult ordered, Dr Crump. -F/U HIV genotype Fever of unknown source -100.4degF today 10/06. -Blood Cx, Urine Cx and CXR ordered. -ID consult ordered, Dr Crump. Hyponatremia -128 today 10/06. -On fluid restriction since yesterday afternoon, no improvement. -may be 2/2 Atripla -Urine osmolality WNL; urine electrolytes WNL. -Nephrology consult ordered, Dr Dakotah V. Subacute Hypothyroidism -TSH: 5.17-elevated -T4 8.56-WNL. -Will f/u. Elevated AlkPhos -262 -GGT 292-elevated. Vitamin D deficiency -<12.8 -started Vitamin D, daily Vitamin B12 deficiency -171 -s/p B12 injection x1 DIET -Regular -[employer] referral DVT prophylaxis -SCD -receiving 1 unit of transfusion; consider lovenox in future
[2017-10-06] MEDS: Tmp-Smz 800 mg-160 mg DS Tab PO SCH (08:33)
[2017-10-06] MEDS ORDERED: Patient's Own Med (Efavirenz/Emtricitabine/Teno [Atripla 600 Mg-200 Mg-300 Mg] 1 TAB) PO SCH (09:00)
[2017-10-06] MEDS ORDERED: Emtricitabine-Tenofovir 200 mg-300 mg Tab PO SCH (09:00)
[2017-10-06] MEDS ORDERED: Cholecalciferol 1,000 INTLU TAB PO SCH (09:00)
--- NOTE | 2017-10-06 10:54 | CP.PCM.CON ---
History of Present Illness - History of Present Illness History of Present Illness: Infectious Disease Consultation Note- asked to see this patietn at the request of Family practice team/Dr.Pierre Thakkar for fever in HIV patient. HPI- Patient is a 52 year old male with HIV /AIDS , anemia and chronic leukopenia who came to ED after he slipped at home secondary to dizziness and "bumped his head". denies any loss of consciousness and because he had some headache where he bumped his head he came to be evaluated. he denies any cough or sob, denies any fever or chills, denies any nausea or vomiting, denies any diarrhea, denies any dysurea. denies any headache other than where he had bumped his head, denies any neck pain or stiffness. denies any recent travel he has recently started to see at [facility] and has been started on atripla. as per records 08/2017 CD4 <20 and Vl [id number] apparently pt. did receive 1 unit PRBC for anemia on admission. as per med records pt. as also here 2 weeks ago for anemia and apparently got 3 units PRBC transfusion. PMD: Dr. Georges PMHX: AIDS, anemia Surg: none Family hx: none Soc: lives alone, denies: smoking, alcohol, illicit drugs rx: Fe and Atripla NKDA Review of Systems - Review of Systems Review of Systems: see HPI please Past Patient History - Past Medical History & Family History Past Medical History?: Yes - Past Social History Alcohol: None Drugs: Denies - CARDIAC Hx Cardiac Disorders: No - PULMONARY Hx Pneumonia: Yes - NEUROLOGICAL Hx Neurological Disorder: No - HEENT Hx HEENT Problems: No - RENAL Hx Chronic Kidney Disease: No - ENDOCRINE/METABOLIC Hx Endocrine Disorders: No - HEMATOLOGICAL/ONCOLOGICAL Hx Anemia: Yes Hx Human Immunodeficiency Virus (HIV): Yes (dx 8 years ago) - INTEGUMENTARY Hx Dermatological Problems: Yes Hx Cellulitis: Yes Other/Comment: Hx Toxic Epidermal Necrolysis - MUSCULOSKELETAL/RHEUMATOLOGICAL Hx Musculoskeletal Disorders: No Hx Falls: No - GASTROINTESTINAL Hx Gastrointestinal Disorders: Yes Hx Hemorrhoids: Yes - GENITOURINARY/GYNECOLOGICAL Hx Genitourinary Disorders: No - PSYCHIATRIC Hx Psychophysiologic Disorder: No Hx Substance Use: No - SURGICAL HISTORY Hx Surgeries: No - ANESTHESIA Hx Anesthesia: No Hx Anesthesia Reactions: No Hx Malignant Hyperthermia: No Meds Allergies/Adverse Reactions: Allergies Allergy/AdvReac Type Severity Reaction Status Date / Time No Known Allergies Allergy Verified 09/03/17 15:09 - Medications Medications: Current Medications Acetaminophen (Tylenol 325mg Tab) 650 mg PO Q6 PRN PRN Reason: Fever >100.4 F Last Admin: 10/06/17 07:32 Dose: 650 mg Acetaminophen (Tylenol 325mg Tab) 650 mg PO Q6 PRN PRN Reason: Pain, Mild (1-3) Azithromycin (Zithromax) 600 mg PO QWK [facility] PRN Reason: Protocol Cholecalciferol (Vitamin D) 2,000 intlu PO DAILY [facility] Last Admin: 10/06/17 08:33 Dose: 2,000 intlu Efavirenz (Sustiva) 600 mg PO DAILY [facility] Last Admin: 10/06/17 08:34 Dose: 600 mg Emtricitabine/Tenofovir (Truvada 200 Mg-300 Mg) 1 tab PO DAILY [facility] Last Admin: 10/06/17 08:33 Dose: 1 tab Ferrous Sulfate (Feosol) 325 mg PO TID [facility] Last Admin: 10/06/17 08:33 Dose: 325 mg Saliva Substitute (First Magic Mouthwash) 5 ml MM TID PRN PRN Reason: Pain, Mild (1-3) Trimethoprim/Sulfamethoxazole (Bactrim Ds Tab) 1 tab PO DAILY [facility] PRN Reason: Protocol Last Admin: 10/06/17 08:33 Dose: 1 tab Physical Exam - Constitutional Appears: No Acute Distress - Head Exam Head Exam: ATRAUMATIC - Eye Exam Eye Exam: EOMI, PERRL - ENT Exam Additional comments: mild thrush noted - Neck Exam Neck exam: Positive for: Full Rom Additional comments: supple - Respiratory Exam Respiratory Exam: Clear to Auscultation Bilateral, NORMAL BREATHING PATTERN - Cardiovascular Exam Cardiovascular Exam: RRR, +S1, +S2 - GI/Abdominal Exam GI & Abdominal Exam: Normal Bowel Sounds, Soft Additional comments: NT, ND - Extremities Exam Extremities exam: Positive for: normal inspection - Neurological Exam Neurological exam: Alert, Normal Gait, Oriented x3 - Skin Skin Exam: Rash Additional comments: oval salmon colored rashes on b/l arms and legs and upper chest as per pt. is not itchy he is not sure when rash started Results - Vital Signs Recent Vital Signs: Last Vital Signs Temp 100.1 F H 10/06/17 08:32 Pulse 99 H 10/06/17 07:47 Resp 18 10/06/17 07:47 BP 108/72 10/06/17 07:47 Pulse Ox 97 10/06/17 07:47 - Labs Result Diagrams: 10/06/17 05:35 10/06/17 05:35 Labs: Laboratory Results - last 24 hr 10/05/17 10/05/17 10/05/17 05:50 11:34 13:31 WBC RBC Hgb Hct MCV MCH MCHC RDW Plt Count MPV Neut % (Auto) Lymph % (Auto) [place] % (Auto) Eos % (Auto) Baso % (Auto) Neut # (Auto) Lymph # (Auto) [place] # (Auto) Eos # (Auto) Baso # (Auto) Sodium Potassium Chloride Carbon Dioxide Anion Gap BUN Creatinine Est GFR ( Amer) Est GFR (Non-Af Amer) Random Glucose Serum Osmolality 277 Calcium Total Bilirubin GGT 292 H AST ALT Alkaline Phosphatase Total Protein Albumin Globulin Albumin/Globulin Ratio Thyroxine (T4) TSH 3rd Generation Urine Osmolality Ur Random Sodium Ur Random Potassium Blood Type O POSITIVE Antibody Screen Negative Crossmatch See Detail BBK History Checked Patient has bt 10/05/17 10/05/17 10/05/17 13:59 16:27 18:02 WBC 2.3 L RBC 3.19 L Hgb 8.8 L Hct 26.7 L MCV 83.8 MCH 27.5 MCHC 32.8 L RDW 17.8 H Plt Count 189 MPV 8.2 Neut % (Auto) 87.7 H Lymph % (Auto) 5.6 L [place] % (Auto) 5.7 Eos % (Auto) 0.1 Baso % (Auto) 0.9 Neut # (Auto) 2.0 Lymph # (Auto) 0.1 L [place] # (Auto) 0.1 Eos # (Auto) 0.0 Baso # (Auto) 0.0 Sodium 128 L Potassium 4.4 Chloride 96 L Carbon Dioxide 19 L Anion Gap 17 BUN 18 Creatinine 0.5 L Est GFR ( Amer) > 60 Est GFR (Non-Af Amer) > 60 Random Glucose 100 Serum Osmolality Calcium 8.2 L Total Bilirubin GGT AST ALT Alkaline Phosphatase Total Protein Albumin Globulin Albumin/Globulin Ratio Thyroxine (T4) TSH 3rd Generation Urine Osmolality 411 Ur Random Sodium 67 Ur Random Potassium 24.5 Blood Type Antibody Screen Crossmatch BBK History Checked 10/05/17 10/06/17 10/06/17 21:05 05:35 05:35 WBC 2.5 L RBC 3.53 L Hgb 8.8 L 9.8 L Hct 27.0 L 29.7 L MCV 84.2 MCH 27.7 MCHC 32.9 L RDW 17.8 H Plt Count 197 MPV Neut % (Auto) Lymph % (Auto) [place] % (Auto) Eos % (Auto) Baso % (Auto) Neut # (Auto) Lymph # (Auto) [place] # (Auto) Eos # (Auto) Baso # (Auto) Sodium 128 L Potassium 4.1 Chloride 94 L Carbon Dioxide 22 Anion Gap 16 BUN 17 Creatinine 0.7 L Est GFR ( Amer) > 60 Est GFR (Non-Af Amer) > 60 Random Glucose 88 Serum Osmolality Calcium 8.5 Total Bilirubin 0.2 GGT AST 54 ALT 52 Alkaline Phosphatase 258 H Total Protein 7.8 Albumin 3.1 L Globulin 4.7 H Albumin/Globulin Ratio 0.6 L Thyroxine (T4) 8.56 TSH 3rd Generation 5.17 H Urine Osmolality Ur Random Sodium Ur Random Potassium Blood Type Antibody Screen Crossmatch BBK History Checked Laboratory Results - last 72 hr 10/05/17 10/05/17 10/05/17 05:50 05:50 05:50 WBC 2.2 L RBC 3.13 L Hgb 8.5 L Hct 26.4 L MCV 84.3 MCH 27.3 MCHC 32.4 L RDW 17.9 H Plt Count 205 MPV 8.2 Neut % (Auto) 88.7 H Lymph % (Auto) 5.2 L [place] % (Auto) 5.5 Eos % (Auto) 0.1 Baso % (Auto) 0.5 Neut # (Auto) 1.9 Lymph # (Auto) 0.1 L [place] # (Auto) 0.1 Eos # (Auto) 0.0 Baso # (Auto) 0.0 Neutrophils % (Manual) 89 H Lymphocytes % (Manual) 4 L Monocytes % (Manual) 7 Platelet Estimate Normal Large Platelets Present Anisocytosis (manual) Slight Tear Drop Cells Slight Ovalocytes Slight PT INR APTT Sodium 129 L Potassium 4.7 Chloride 95 L Carbon Dioxide 21 L Anion Gap 18 BUN 18 Creatinine 0.6 L Est GFR ( Amer) > 60 Est GFR (Non-Af Amer) > 60 Random Glucose 89 Serum Osmolality Calcium 8.5 Total Bilirubin 0.3 GGT AST 63 H ALT 61 Alkaline Phosphatase 262 H Total Protein 7.9 Albumin 3.2 L Globulin 4.7 H Albumin/Globulin Ratio 0.7 L Thyroxine (T4) TSH 3rd Generation Urine Osmolality Ur Random Sodium Ur Random Potassium Blood Type O POSITIVE Antibody Screen Negative Crossmatch See Detail BBK History Checked Patient has bt 10/05/17 10/05/17 10/05/17 07:40 11:34 13:31 WBC RBC Hgb Hct MCV MCH MCHC RDW Plt Count MPV Neut % (Auto) Lymph % (Auto) [place] % (Auto) Eos % (Auto) Baso % (Auto) Neut # (Auto) Lymph # (Auto) [place] # (Auto) Eos # (Auto) Baso # (Auto) Neutrophils % (Manual) Lymphocytes % (Manual) Monocytes % (Manual) Platelet Estimate Large Platelets Anisocytosis (manual) Tear Drop Cells Ovalocytes PT 12.2 INR 1.1 APTT 28.5 Sodium Potassium Chloride Carbon Dioxide Anion Gap BUN Creatinine Est GFR ( Amer) Est GFR (Non-Af Amer) Random Glucose Serum Osmolality 277 Calcium Total Bilirubin GGT 292 H AST ALT Alkaline Phosphatase Total Protein Albumin Globulin Albumin/Globulin Ratio Thyroxine (T4) TSH 3rd Generation Urine Osmolality Ur Random Sodium Ur Random Potassium Blood Type Antibody Screen Crossmatch BBK History Checked 10/05/17 10/05/17 10/05/17 13:59 16:27 18:02 WBC 2.3 L RBC 3.19 L Hgb 8.8 L Hct 26.7 L MCV 83.8 MCH 27.5 MCHC 32.8 L RDW 17.8 H Plt Count 189 MPV 8.2 Neut % (Auto) 87.7 H Lymph % (Auto) 5.6 L [place] % (Auto) 5.7 Eos % (Auto) 0.1 Baso % (Auto) 0.9 Neut # (Auto) 2.0 Lymph # (Auto) 0.1 L [place] # (Auto) 0.1 Eos # (Auto) 0.0 Baso # (Auto) 0.0 Neutrophils % (Manual) Lymphocytes % (Manual) Monocytes % (Manual) Platelet Estimate Large Platelets Anisocytosis (manual) Tear Drop Cells Ovalocytes PT INR APTT Sodium 128 L Potassium 4.4 Chloride 96 L Carbon Dioxide 19 L Anion Gap 17 BUN 18 Creatinine 0.5 L Est GFR ( Amer) > 60 Est GFR (Non-Af Amer) > 60 Random Glucose 100 Serum Osmolality Calcium 8.2 L Total Bilirubin GGT AST ALT Alkaline Phosphatase Total Protein Albumin Globulin Albumin/Globulin Ratio Thyroxine (T4) TSH 3rd Generation Urine Osmolality 411 Ur Random Sodium 67 Ur Random Potassium 24.5 Blood Type Antibody Screen Crossmatch BBK History Checked 10/05/17 10/06/17 10/06/17 21:05 05:35 05:35 WBC 2.5 L RBC 3.53 L Hgb 8.8 L 9.8 L Hct 27.0 L 29.7 L MCV 84.2 MCH 27.7 MCHC 32.9 L RDW 17.8 H Plt Count 197 MPV Neut % (Auto) Lymph % (Auto) [place] % (Auto) Eos % (Auto) Baso % (Auto) Neut # (Auto) Lymph # (Auto) [place] # (Auto) Eos # (Auto) Baso # (Auto) Neutrophils % (Manual) Lymphocytes % (Manual) Monocytes % (Manual) Platelet Estimate Large Platelets Anisocytosis (manual) Tear Drop Cells Ovalocytes PT INR APTT Sodium 128 L Potassium 4.1 Chloride 94 L Carbon Dioxide 22 Anion Gap 16 BUN 17 Creatinine 0.7 L Est GFR ( Amer) > 60 Est GFR (Non-Af Amer) > 60 Random Glucose 88 Serum Osmolality Calcium 8.5 Total Bilirubin 0.2 GGT AST 54 ALT 52 Alkaline Phosphatase 258 H Total Protein 7.8 Albumin 3.1 L Globulin 4.7 H Albumin/Globulin Ratio 0.6 L Thyroxine (T4) 8.56 TSH 3rd Generation 5.17 H Urine Osmolality Ur Random Sodium Ur Random Potassium Blood Type Antibody Screen Crossmatch BBK History Checked Microbiology 06/07/16 01:40 Blood-Venous Blood Culture - Final 06/07/16 01:40 Blood-Venous Gram Stain - Final NO GROWTH AFTER 5 DAYS TEST NOT PERFORMED 08/20/17 10:59 Other: Please Indicate Mycobacterial Culture - Final 08/18/17 13:47 Sputum Induced Gram Stain - Final 08/18/17 13:47 Sputum Induced Sputum Culture - Final Methicillin Resistant S Aureus 08/17/17 20:11 Blood Blood Culture - Final 08/17/17 20:11 Blood Gram Stain - Final NO GROWTH AFTER 5 DAYS TEST NOT PERFORMED Accession No. : [id number] Patient Name / ID : GISSEL LEMOS / [id number] Exam Date : 10/06/2017 12:19:25 ( Approved ) Study Comment : Sex / Age : M / [id number] Creator : Ajay Sin MD Dictator : Ajay Sin MD Supervisor Packing : Cost And Risk Analysis Manager : Ajay Sin MD Approver2 : Report Date : 10/06/2017 12:41:24 My Comment : HISTORY: Fever in HIV patient. COMPARISON: Chest radiograph dated 09/25/2017. TECHNIQUE: Chest PA and lateral FINDINGS: LUNGS: No active pulmonary disease. PLEURA: No significant pleural effusion identified. No pneumothorax apparent. CARDIOVASCULAR: Normal. OSSEOUS STRUCTURES: Unchanged. VISUALIZED UPPER ABDOMEN: Normal. OTHER FINDINGS: None. IMPRESSION: No active disease. Assessment & Plan (1) Human immunodeficiency virus (HIV) seropositivity Status: Acute (2) Anemia Status: Acute - Assessment and Plan (Free Text) Assessment: A/P- 52 year old male with HIV/AIDS ( not sure if he is complaint with his meds0 < anemia admitted with c/o slipping and hitting the side of his head at home but denies any unconsciouness. new onset fever leukopenia chronically ( not neutropenic ) could be secondary to uncontrolled HIV and marrow suppression secondary to that. cxr- negative as per report. Brain CT report- no acute findings as per report, has sinusitis as per report. plan- check UA stat along with urine cx. check blood cx x 2. advise to make sure he is on both MAC and PCP prophylaxis since his CD4 is <20. get genotype result from [facility] to make sure he is on good regimen for his HAART and rule out resistance. in light of the leukopenia would advise mepron for PCP prophyalxis. if all blood and urine cx and UA are negative adn he still remains febrile then would advise LP to rule out any CSF involvement. also he may need full body CT scan r/o any lymphadenopathy and rule out malignancy as cause of fever. can place on empiric ceftriaxone and vanco since his immune system is low pending culture results. check lyme serology also for the erythema migrans looking rash( althought unlikely based on the season). may need derm consult . All above d/w DR.Pierre Thakkar and family practice team at length. Thank you for allowing me to take part in the care of this patient.
--- NOTE | 2017-10-06 12:48 | RAD ---
HISTORY: Fever in HIV patient. COMPARISON: Chest radiograph dated 09/25/2017. TECHNIQUE: Chest PA and lateral FINDINGS: LUNGS: No active pulmonary disease. PLEURA: No significant pleural effusion identified. No pneumothorax apparent. CARDIOVASCULAR: Normal. OSSEOUS STRUCTURES: Unchanged. VISUALIZED UPPER ABDOMEN: Normal. OTHER FINDINGS: None. IMPRESSION: No active disease.
[2017-10-06 15:50] VITALS: BP 118/72; PULSE 113; RESP 20; O2SAT 98
[2017-10-06 16:58] VITALS: TEMP 98.6
[2017-10-06] MEDS ORDERED: Nystatin 100,000 Units/ml Oral Susp 5 ml UD PO SCH (17:00)
--- NOTE | 2017-10-06 18:31 | CP.PCM.PCO ---
Addendum Addendum: 10/06/17 18:26 Nurse called that patient was living AMA. At the time we presented to floor patient was left. He signed AMA form.
[2017-10-07] MEDS ORDERED: Atovaquone 750 mg/5 ml Susp UD PO SCH (09:00)
== END 2017-10-06 18:20 | disposition left against medical advice (07) | DRG 713 ==
LOC: H.ER 04:52 → H.ERHOLD 06:57 → H.MEDSURG1 08:27 → OBSVTOIN 10-06 15:17
PROVIDERS: ADMIT Family Medicine Geriatric Medicine; ATTEND Family Medicine Geriatric Medicine
PROC: 30233N1 Transfusion of Nonautologous Red Blood Cells into Peripheral Vein, Percutaneous Approach (ICD-10-PCS; principal; 2017-10-05)
DX: D50.9 Iron deficiency anemia, unspecified (principal); B20 Human immunodeficiency virus [HIV] disease; E87.1 Hypo-osmolality and hyponatremia; E53.8 Deficiency of other specified B group vitamins; E55.9 Vitamin D deficiency, unspecified; E03.9 Hypothyroidism, unspecified; R50.9 Fever, unspecified

== ENCOUNTER 2017-10-20 23:58 | Emergency (ER) | payer SELFPAY ==
[2017-10-20 23:58] VITALS: BMI 20.8
[2017-10-21 00:06] VITALS: BP 110/65
--- NOTE | 2017-10-21 01:02 | ED PDOC ---
HPI: Allergic Reaction Time Seen by Provider: 10/21/17 00:05 Chief Complaint (Nursing): Allergic Reaction Chief Complaint (Provider): Allergic Reaction History Per: Patient History/Exam Limitations: no limitations Onset/Duration Of Symptoms: Hrs (x1 hour [employer]) Current Symptoms Are (Timing): Still Present Context: Other (Medication) Possible Cause: Medication Associated Symptoms: Skin Rash Additional Complaint(s): 52 year old male presents to ED with complaints of an allergic reaction x1 hour [employer] and has a past medical history of AIDS. Patient states he recently had his AID medication changed at the clinic and broke out in an urticaria after taking them. (-) pain or SOB. PCP: Clinic Past Medical History Reviewed: Historical Data, Nursing Documentation, Vital Signs Vital Signs: Last Vital Signs Temp 97.9 F 10/21/17 00:03 Pulse 80 10/21/17 00:03 Resp 18 10/21/17 00:03 BP 110/65 10/21/17 00:03 Pulse Ox 97 10/21/17 00:03 - Medical History PMH: Anemia, HIV (dx 8 years ago), Pneumonia Denies: Chronic Kidney Disease - Family History Family History: States: Unknown Family Hx - Living Arrangements Living Arrangements: Alone - Home Medications Home Medications: Ambulatory Orders Medication Instructions Recorded Atovaquone [Mepron] 1,500 mg PO DAILY #60 packet 08/20/17 Azithromycin [Zithromax] 1,200 mg PO QWK #8 tab 08/20/17 Efavirenz/Emtricitabine/Teno 1 tab PO DAILY #30 tab 09/03/17 [Atripla 600 MG-200 MG-300 MG] Ferrous Sulfate 325 mg PO TID #90 tablet 09/07/17 Mag&Al/Simet/Diphen/Lido [First 30 ml MM PRN PRN #1 kit 09/07/17 Magic Mouthwash] - Allergies Allergies/Adverse Reactions: Allergies Allergy/AdvReac Type Severity Reaction Status Date / Time No Known Allergies Allergy Verified 09/03/17 15:09 Review of Systems ROS Statement: Except As Marked, All Systems Reviewed And Found Negative Respiratory: Negative for: Shortness of Breath Musculoskeletal: Negative for: Neck Pain, Shoulder Pain, Arm Pain, Back Pain, Hand Pain, Leg Pain Skin: Positive for: Rash (urticarial rash ) Physical Exam - Reviewed Nursing Documentation Reviewed: Yes Vital Signs Reviewed: Yes - Physical Exam Appears: Positive for: Non-toxic, No Acute Distress Skin: Positive for: Warm, Dry, Rash (diffuse urticarial rash). Negative for: Normal Color Eye Exam: Positive for: Normal appearance, EOMI, PERRL Cardiovascular/Chest: Positive for: Regular Rate, Rhythm. Negative for: Murmur Respiratory: Positive for: Normal Breath Sounds. Negative for: Respiratory Distress Neurologic/Psych: Positive for: Alert, Oriented. Negative for: Motor/Sensory Deficits - ECG O2 Sat by Pulse Oximetry: 97 (RA) Pulse Ox Interpretation: Normal Disposition - Clinical Impression Clinical Impression: Allergic reaction - Patient ED Disposition Is Patient to be Admitted: No - Disposition Referrals: Marcell Gregorio MD [Primary Care Provider] - Disposition: Left W/O Treatment Disposition Time: 03:00 Condition: STABLE Forms: [employer] (N[place]ian) Medical Decision Making Medical Decision Makin Initial impression: allergic reaction due to medicine change Initial plan: * Benadryl 50mg PO * Pepcid 40mg PO * Prednisone 40mg PO * Re-eval pt left prior to reevaluation for discharge. Scribe Attestation: Documented by Lovely Lawson, acting as a scribe for Mackenzie Darby MD. Provider Scribe Attestation: All medical record entries made by the Scribe were at my direction and personally dictated by me. I have reviewed the chart and agree that the record accurately reflects my personal performance of the history, physical exam, medical decision making, and the department course for this patient. I have also personally directed, reviewed, and agree with the discharge instructions and disposition.
[2017-10-21 03:02] VITALS: PULSE 88; RESP 16; TEMP 98
[2017-10-21 05:39] VITALS: O2SAT 97
== END 2017-10-21 02:00 | disposition left against medical advice (07) ==
LOC: H.ER 23:58
DX: T78.49XA Other allergy, initial encounter (principal); X58.XXXA Exposure to other specified factors, initial encounter

== ENCOUNTER 2017-10-23 21:53 | Emergency (ER) | payer SELFPAY ==
[2017-10-23 21:53] VITALS: BMI 20.8
[2017-10-23 22:11] VITALS: TEMP 97.8
[2017-10-23 22:51] LABS: BASO % 0.6 % (0.0-2.0); EOS % 1.8 % (0.0-4.0); HEMOGLOBIN 8.5 g/dL (12.0-18.0); LYMPH # 0.1 K/uL (1.0-4.3); LYMPH % 4.1 % (20.0-40.0); MEAN CELL VOLUME 83.3 fl (80.0-94.0); MEAN CORPUSCULAR HEMOGLOBIN 27.7 pg (27.0-31.0); MEAN CORPUSCULAR HGB CONC 33.3 g/dL (33.0-37.0); MEAN PLATELET VOLUME 8.6 fl (7.2-11.7); MONO # 0.1 K/uL (0.0-0.8); MONO % 3.8 % (0.0-10.0); NEUT # 2.4 K/uL (1.8-7.0); NEUT % 89.7 % (50.0-75.0); PLATELET COUNT 145 K/uL (130-400); RBC 3.05 Mil/uL (4.40-5.90); WHITE BLOOD COUNT 2.7 K/uL (4.8-10.8)
[2017-10-23 23:10] LABS: ALB/GLOB RATIO 0.6 (1.0-2.1); ALBUMIN 2.7 g/dL (3.5-5.0); ALT/SGPT 47 U/L (21-72); AST/SGOT 72 U/L (17-59); BLOOD UREA NITROGEN 18 mg/dl (9-20); CALCIUM 8.3 mg/dL (8.4-10.2); GFR AFRICAN-AMERICAN > 60; GFR NON-AFRICAN AMERICAN > 60
[2017-10-23 23:13] LABS: PARTIAL THROMBOPLASTIN TIME 26.2 Seconds (25.6-37.1); PROTHROMBIN TIME 11.4 Seconds (9.8-13.1)
--- NOTE | 2017-10-24 | ED PDOC ---
HPI: Chest Pain Time Seen by Provider: 10/23/17 22:23 Chief Complaint (Nursing): Chest Pain Chief Complaint (Provider): Chest Pain History Per: Patient History/Exam Limitations: no limitations Onset/Duration Of Symptoms: Days (x 2) Additional Complaint(s): 52 years old male with history of HIV presents to the ED with complaints of intermittent episodes of chest pain onset 2 days. Patient reports experiencing shoulder pain before that radiated to his chest. He denies any nausea, vomiting, diaphoresis, shortness of breath or trauma. PMD: Marcell Gregorio Past Medical History Reviewed: Historical Data, Nursing Documentation, Vital Signs Vital Signs: Last Vital Signs Temp 97.8 F 10/23/17 22:08 Pulse 84 10/23/17 22:08 Resp 18 10/23/17 22:08 BP 120/84 10/23/17 22:08 Pulse Ox 100 10/24/17 00:06 - Medical History PMH: Anemia, HIV (dx 8 years ago), Pneumonia Denies: Chronic Kidney Disease - Surgical History Surgical History: No Surg Hx - Family History Family History: States: Unknown Family Hx - Social History Current smoker - smoking cessation education provided: No Alcohol: None Drugs: Denies - Home Medications Home Medications: Ambulatory Orders Medication Instructions Recorded Atovaquone [Mepron] 1,500 mg PO DAILY #60 packet 08/20/17 Azithromycin [Zithromax] 1,200 mg PO QWK #8 tab 08/20/17 Efavirenz/Emtricitabine/Teno 1 tab PO DAILY #30 tab 09/03/17 [Atripla 600 MG-200 MG-300 MG] Ferrous Sulfate 325 mg PO TID #90 tablet 09/07/17 Mag&Al/Simet/Diphen/Lido [First 30 ml MM PRN PRN #1 kit 09/07/17 Magic Mouthwash] - Allergies Allergies/Adverse Reactions: Allergies Allergy/AdvReac Type Severity Reaction Status Date / Time No Known Allergies Allergy Verified 09/03/17 15:09 Review of Systems ROS Statement: Except As Marked, All Systems Reviewed And Found Negative Cardiovascular: Positive for: Chest Pain Respiratory: Negative for: Shortness of Breath Gastrointestinal: Negative for: Nausea, Vomiting Musculoskeletal: Negative for: Other (Trauma) Skin: Negative for: Other (Diaphoresis) Physical Exam - Reviewed Nursing Documentation Reviewed: Yes Vital Signs Reviewed: Yes - Physical Exam Appears: Positive for: Non-toxic, No Acute Distress Head Exam: Positive for: ATRAUMATIC, NORMOCEPHALIC Skin: Positive for: Normal Color, Warm, Dry Eye Exam: Positive for: Normal appearance, EOMI, PERRL ENT: Positive for: Normal ENT Inspection Neck: Positive for: Normal, Supple Cardiovascular/Chest: Positive for: Regular Rate, Rhythm. Negative for: Murmur Respiratory: Positive for: Normal Breath Sounds. Negative for: Respiratory Distress Gastrointestinal/Abdominal: Positive for: Normal Exam, Soft. Negative for: Tenderness Back: Positive for: Normal Inspection Extremity: Positive for: Normal ROM. Negative for: Tenderness Neurologic/Psych: Positive for: Alert, Oriented - Laboratory Results Result Diagrams: 10/23/17 22:40 10/23/17 22:40 - ECG O2 Sat by Pulse Oximetry: 100 (RA) Pulse Ox Interpretation: Normal Medical Decision Making Medical Decision Making: Time: 2224 Initial Impression: 52 years old male with chest pain. Initial Plan: --EKG --Urine Drug Screen --CBC --LDH --CMP --Troponin I --PTT --PT --Chest X-Ray ____ Time: 124 Labs reviewed and show no significant abnormality and chest x-ray shows no active disease. Patient reports he has been asymptomatic since he has been in the ED. Patient is stable for discharge. Scribe Attestation: Documented by Josy Jones, acting as a scribe for Lucius Hurtado MD. Provider Scribe Attestation: All medical record entries made by the Scribe were at my direction and personally dictated by me. I have reviewed the chart and agree that the record accurately reflects my personal performance of the history, physical exam, medical decision making, and the department course for this patient. I have also personally directed, reviewed, and agree with the discharge instructions and disposition. Disposition - Clinical Impression Clinical Impression: Atypical chest pain - Disposition Disposition: Routine/Home Disposition Time: 01:25 Condition: STABLE Instructions: Chest Pain That Is Not Caused by the Heart (DC) Forms: [employer] (Greenlandic)
[2017-10-24 01:32] VITALS: BP 124/62; PULSE 76; RESP 16; O2SAT 98
[2017-10-24 03:43] LABS: BANDS 1 % (0-2); EOSINOPHIL 2 % (0-7); LYMPHOCYTE 6 % (20-50); MONOCYTE 5 % (0-10); NEUTROPHIL 86 % (42-75); TOTAL CELLS COUNTED 100
[2017-10-24 03:44] LABS: PLATELET ESTIMATE NORMAL (NORMAL)
--- NOTE | 2017-10-24 09:46 | RAD ---
HISTORY: chest pain COMPARISON: 10/06/2017 FINDINGS: LUNGS: No active pulmonary disease. PLEURA: No significant pleural effusion identified, no pneumothorax apparent. CARDIOVASCULAR: Normal. OSSEOUS STRUCTURES: No significant abnormalities. VISUALIZED UPPER ABDOMEN: Normal. OTHER FINDINGS: None. IMPRESSION: No active disease.
== END 2017-10-24 01:33 | disposition home or self-care (01) ==
LOC: H.ER 21:53
DX: R07.89 Other chest pain (principal); Z21 Asymptomatic human immunodeficiency virus [HIV] infection status